=== PATIENT | male | born 1980 | race Caucasian/White ===

== ENCOUNTER → 2018-11-23 07:37 | Outpatient (CLI) | payer BC, SELFPAY ==
[2018-11-23 12:23] LABS: Alanine Aminotransferase 64 U/L (12-78); Albumin Level 3.9 gm/dL (3.4-5.0); Albumin/Globulin Ratio 1.4 (1.1-1.8); Alkaline Phosphatase 113 U/L (46-116); Anion Gap 13.1 mEq/L (5-15); Aspartate Amino Transferase 24 U/L (15-37); Bilirubin,Total 0.4 mg/dL (0.2-1.0); Blood Urea Nitrogen 17 mg/dL (7-18); Calcium 8.9 mg/dL (8.5-10.1); Carbon Dioxide 31 mmol/L (21.0-32.0); Chloride 106 mmol/L (98-107); Chol/HDL Ratio 3.3 (1-3.5); Cholesterol 124 mg/dL (140-200); Creatinine,Serum 0.89 mg/dL (0.70-1.30); Estimated Glomerular Filt Rate 96 ml/min (>60); GFR (African American) 116 ML/MIN (>60); Globulin 2.8 gm/dl (1.3-3.2); Glucose 101 mg/dL (74-106); HDL Cholesterol 38 mg/dL (27-67); LDL Cholesterol 69 mg/dL (0-130); Potassium 4.1 mmoL/L (3.5-5.1); Sodium 146 mmol/L (136-145); Total Protein,Serum 6.7 gm/dL (6.4-8.2); Triglycerides 86 mg/dL (30-200); VLDL Cholesterol 17 mg/dL (0-40)
== END ==
PROVIDERS: Visit Provider Nurse Practitioner Family
DX: Z00.00 Encounter for general adult medical examination without abnormal findings (principal)
CPT/HCPCS: 36415; 80053; 80061

== ENCOUNTER 2019-11-25 13:15 | Emergency (ER) | payer BC, SELFPAY ==
--- NOTE | 2019-11-25 13:13 | ECG_ITS ---
APPROVED REPORT Exam: Resting ECG HR:81 bpm ECG Measurements Heart Rate 81 AXES LA 134 P 28 QRSd 78 QRS -14 QT 368 T 16 QTc 427 <Conclusion> Normal sinus rhythm Normal ECG Electronically signed by : Naga Mosley, 11/26/2019 13:16:29
[2019-11-25 13:15] VITALS: BP 130/98; PULSE 97; RESP 18; TEMP 36.7; O2SAT 97; BMI 41.5
--- NOTE | 2019-11-25 13:19 | XR_ITS ---
PROCEDURE: XR CHEST 2V CLINICAL HISTORY: cp Chest pain COMPARISON: CXR CHEST(2 VIEWS-NOT PORTABLE) from 09/14/2016 FINDINGS: The cardiomediastinal silhouette and pulmonary vascularity are within normal limits. The lungs are clear without infiltrates, suspicious nodules, or pleural effusions. No acute bony abnormalities. IMPRESSION: No acute findings. Dictated by: Marlo Salazar MD 11/25/2019 13:41 Electronically signed by Marlo Salazar MD in [place] 11/25/2019 13:41
[2019-11-25 13:28] LABS: Basophils # 0.1 K/mm3 (0-0.2); Basophils % 0.6 % (0.1-2.0); Eosinophils # 0.2 K/mm3 (0.0-0.4); Eosinophils % 2.2 % (0.1-12.0); Hematocrit 47.7 % (42.0-52.0); Hemoglobin 17.3 g/dL (14.1-18.0); Lymphocytes # 2.8 K/mm3 (0.7-4.5); Lymphocytes % 29.9 % (10-50); Mean Corpuscular HGB Conc 36.3 g/dL (31.8-35.4); Mean Corpuscular Hemoglobin 32.2 pg (27.0-31.2); Mean Corpuscular Volume 88.5 fl (80-94); Mean Platelet Volume 7.8 fl (7.4-10.4); Monocytes # 0.6 K/mm3 (0.1-1.0); Monocytes % 6.3 % (1.7-9.3); Neutrophils # 5.7 K/mm3 (1.8-7.8); Neutrophils % 60.9 % (37.0-80.0); Platelet Count 292 K/mm3 (142-424); Red Blood Count 5.39 M/mm3 (4.60-6.20); Red Cell Distribution Width 13.7 % (11.5-17.5); White Blood Count 9.4 K/mm3 (4.8-10.8)
[2019-11-25 13:32] LABS: Alanine Aminotransferase 61 U/L (12-78); Albumin Level 5.2 g/dl (3.5-5.0); Albumin/Globulin Ratio 1.6 (1.1-1.8); Alkaline Phosphatase 108 U/L (38-126); Anion Gap 16.1 mEq/L (5-15); Aspartate Amino Transferase 36 U/L (17-59); Bilirubin,Total 0.7 mg/dl (0.2-1.3); Blood Urea Nitrogen 21 mg/dl (9-20); Calcium 9.7 mg/dl (8.4-10.2); Carbon Dioxide 29 mmol/L (22.0-30.0); Chloride 99 mmol/L (98-107); Creatinine Clearance Estimated 92 mL/min (50-200); Estimated Glomerular Filt Rate 108 ml/min (>60); GFR (African American) 130 ML/MIN (>60); Globulin 3.2 g/dL (1.3-3.2); Glucose 117 mg/dl (74-100); Potassium 4.1 mmoL/L (3.5-5.1); Sodium 140 mmol/L (136-145); Total Protein,Serum 8.4 g/dl (6.3-8.2)
--- NOTE | 2019-11-25 13:32 | [facility].EDCP ---
ED Disposition Clinical Impression: Chest pain Qualifiers: Chest pain type: unspecified Qualified Code(s): R07.9 - Chest pain, unspecified Disposition: Home, Self-Care Condition on Discharge: Good Additional Instructions: After reviewing your labs and radiology we are discharging you home at this time. I recommend that you follow-up with your primary care physician within this next week, and schedule appointments with a linux engineer in the future. Should your symptoms return or worsen, please return to the emergency department for further evaluation. Referrals: Provider,Referral, [Referring] - - Critical Care Critical Care Time: No Attestation: On 11/25/19, the high probability of a clinically significant, sudden or life threatening deterioration of the following system(s) required my full and direct attention, intervention and personal management. The time I documented below is in addition to time spent performing reported procedures but includes the following listed in this critical care notation. Medical Decision Making - Tru Inquiry Pt receiving controlled substance: No Tru was queried for this patient: No Vital Signs: 11/25/19 13:15 11/25/19 15:49 11/25/19 16:36 Temperature 98.1 F Temperature Source Oral Pulse Rate [Right] 97 H 69 72 Respiratory Rate 18 Blood Pressure [Right Arm] 130/98 H 122/80 114/72 Blood Pressure Mean [Right Arm] 108 94 86 Blood Pressure Source [Right Arm] Automatic Cuff Automatic Cuff Blood Pressure Position [Right Arm] Sitting Supine 02 Sat by Pulse Oximetry 97 97 97 Oxygen Delivery Method Room Air - Lab Data Lab Results 11/25/19 13:18: WBC 9.4, RBC 5.39, Hgb 17.3, Hct 47.7, MCV 88.5, MCH 32.2 H, MCHC 36.3 H, RDW 13.7, Plt Count 292, MPV 7.8, Neut % (Auto) 60.9, Lymph % (Auto) 29.9, [place] % (Auto) 6.3, Eos % (Auto) 2.2, Baso % (Auto) 0.6, Neut # (Auto) 5.7, Lymph # (Auto) 2.8, [place] # (Auto) 0.6, Eos # (Auto) 0.2, Baso # (Auto) 0.1 11/25/19 13:18: Sodium 140, Potassium 4.1, Chloride 99, Carbon Dioxide 29, Anion Gap 16.1 H, BUN 21 H, Creatinine 0.80, Estimated Creat Clear 92, Estimated GFR 108, Est GFR ( Amer) 130, Glucose 117 H, Calcium 9.7, Total Bilirubin 0.7, AST 36, ALT 61, Alkaline Phosphatase 108, Troponin I < 0.01, Total Protein 8.4 H, Albumin 5.2 H, Globulin 3.2, Albumin/Globulin Ratio 1.6 11/25/19 13:18: D-Dimer < 100 11/25/19 16:31: Troponin I < 0.01 Result diagrams: 11/25/19 13:18 11/25/19 13:18 Orders (Tests/Meds): ED MEDICATIONS Discontinued Medications Generic Name Dose Route Start Last Admin Trade Name Jayna PRN Reason Stop Dose Admin Aspirin 324 mg 11/25/19 13:20 11/25/19 13:28 Aspirin 81mg Chewable Tablet PO 11/25/19 13:21 Not Given ONCE ONE Aspirin 325 mg 11/25/19 13:25 11/25/19 13:30 Aspirin 325mg Tablet PO 11/25/19 13:26 325 mg ONCE ONE Administration Belladonna Alkaloids 60 ml 11/25/19 13:25 11/25/19 13:30 Gi Cocktail 60ml Udc PO 11/25/19 13:26 60 ml ONCE ONE Administration Nitroglycerin 0.4 mg 11/25/19 13:25 11/25/19 13:30 Nitrostat 0.4mg Sl Tablet SL 11/25/19 13:26 1 dose ONCE ONE Administration ORDERS Category Date Time Status Troponin I Q3H Lab 11/25/19 19:30 Ordered Medical Decision Narrative: In summary patient is a well-appearing 39-year-old male presenting to the emergency department for evaluation of 3 days of chest pain. Differential diagnosis includes but is not limited to GERD, pneumonia, pulmonary embolism, and ACS. This appropriate work-up initiated including CBC, CMP, d-dimer, troponin panel, chest x-ray two-view, and EKG. Patient's initial EKG shows normal sinus rhythm, no ST elevation, depression, or QT prolongation was noted. Initial troponin shows no elevation. Rest of initial labs nonactionable. Chest x-ray shows no cardiopulmonary disease. Repeat troponin shows no delta. Repeate EKG shows normal sinus rhythm, no ST elevation, d
[2019-11-25 13:45] LABS: Troponin I < 0.01 ng/ml (0.00-0.034)
[2019-11-25 14:30] LABS: D-Dimer < 100 ng/mL (0-400)
[2019-11-25 15:49] VITALS: BP 122/80; PULSE 69; O2SAT 97
--- NOTE | 2019-11-25 16:16 | PC.NURSE ---
SPOKE WITH LAB TO INQUIRE ON SECOND TROP TIME. THEY ADVISED THAT IT IS DUE AT 1530. MEDIC STATES THAT HE WILL DRAW IT AT THAT TIME.
[2019-11-25 16:36] VITALS: BP 114/72; PULSE 72; O2SAT 97
[2019-11-25 16:59] LABS: Troponin I < 0.01 ng/ml (0.00-0.034)
[2019-11-25 17:16] VITALS: BP 155/69; PULSE 80; RESP 18; TEMP 36.7; O2SAT 98
== END 2019-11-25 17:30 | disposition home or self-care (01) ==
PROVIDERS: Emergency Provider Emergency Medicine; PCP Internal Medicine Adolescent Medicine
DX: R07.9 Chest pain, unspecified (principal)
CPT/HCPCS: 71046; 80053; 84484; 85025; 85378; 93005; 99284

== ENCOUNTER → 2020-06-16 08:31 | Outpatient (CLI) | payer BC, SELFPAY ==
[2020-06-16 09:35] LABS: Chloride 102 mmol/L (98-107); Sodium 140 mmol/L (136-145)
[2020-06-16 09:37] LABS: Blood Urea Nitrogen 17 mg/dl (9-20); Estimated Glomerular Filt Rate 93 ml/min (>60); GFR (African American) 113 ML/MIN (>60)
[2020-06-16 09:38] LABS: Alanine Aminotransferase 57 U/L (12-78); Albumin Level 5.1 g/dl (3.5-5.0); Albumin/Globulin Ratio 1.6 (1.1-1.8); Alkaline Phosphatase 103 U/L (38-126); Aspartate Amino Transferase 40 U/L (17-59); Bilirubin,Total 0.7 mg/dl (0.2-1.3); Carbon Dioxide 32 mmol/L (22.0-30.0); Cholesterol 163 mg/dl (140-200); Globulin 3.1 g/dL (1.3-3.2); Total Protein,Serum 8.2 g/dl (6.3-8.2); Triglycerides 116 mg/dl (30-150); VLDL Cholesterol 23 mg/dL (0-40)
[2020-06-16 09:39] LABS: Calcium 10.3 mg/dl (8.4-10.2); Chol/HDL Ratio 3.3 (1-3.5); Glucose 107 mg/dl (74-100); HDL Cholesterol 50 mg/dl (40-60)
[2020-06-16 09:49] LABS: Direct LDL Cholesterol 91.32 mg/dL (100-129)
[2020-06-16 13:04] LABS: Hemoglobin A1C 5.2 % (4.0-6.0)
== END ==
PROVIDERS: Visit Provider Nurse Practitioner Family
DX: Z00.00 Encounter for general adult medical examination without abnormal findings (principal); E11.9 Type 2 diabetes mellitus without complications
CPT/HCPCS: 36415; 80053; 80061; 83036

== ENCOUNTER → 2020-10-07 10:05 | Outpatient (CLI) | payer BC, SELFPAY ==
[2020-10-07 10:26] LABS: Basophils # 0.1 K/mm3 (0-0.2); Basophils % 0.5 % (0.1-2.0); Eosinophils # 0.1 K/mm3 (0.0-0.4); Eosinophils % 0.7 % (0.1-12.0); Hematocrit 46.3 % (42.0-52.0); Hemoglobin 16.8 g/dL (14.1-18.0); Lymphocytes # 2.2 K/mm3 (0.7-4.5); Lymphocytes % 13.8 % (10-50); Mean Corpuscular HGB Conc 36.3 g/dL (31.8-35.4); Mean Corpuscular Volume 85.5 fl (80-94); Mean Platelet Volume 8.1 fl (7.4-10.4); Monocytes # 0.9 K/mm3 (0.1-1.0); Monocytes % 5.9 % (1.7-9.3); Neutrophils # 12.4 K/mm3 (1.8-7.8); Neutrophils % 79.1 % (37.0-80.0); Platelet Count 352 K/mm3 (142-424); Red Blood Count 5.42 M/mm3 (4.60-6.20); Red Cell Distribution Width 13.6 % (11.5-17.5); White Blood Count 15.7 K/mm3 (4.8-10.8)
[2020-10-07 10:30] LABS: MANUAL DIFFERENTIAL MANUAL DIFFERENTIAL (MANUAL DIFF)
[2020-10-07 10:34] LABS: Alanine Aminotransferase 37 U/L (12-78); Albumin/Globulin Ratio 1.6 (1.1-1.8); Alkaline Phosphatase 109 U/L (38-126); Amylase 62 U/L (30-110); Anion Gap 11.8 mEq/L (5-15); Aspartate Amino Transferase 28 U/L (17-59); Bilirubin,Total 1.2 mg/dl (0.2-1.3); Blood Urea Nitrogen 21 mg/dl (9-20); Calcium 9.6 mg/dl (8.4-10.2); Carbon Dioxide 28 mmol/L (22.0-30.0); Chloride 103 mmol/L (98-107); Estimated Glomerular Filt Rate 107 ml/min (>60); GFR (African American) 130 ML/MIN (>60); Globulin 3.2 g/dL (1.3-3.2); Glucose 102 mg/dl (74-100); Lipase 40 U/L (23-300); Potassium 3.8 mmoL/L (3.5-5.1); Sodium 139 mmol/L (136-145); Total Protein,Serum 8.2 g/dl (6.3-8.2)
[2020-10-07 10:50] LABS: Lymphocytes % 17 % (10-50); Monocytes % 3 % (2-9); Neutrophils % 80 % (42-76); Platelet Estimate Normal; RBC Morphology Normal; Total Cells Counted 100
--- NOTE | 2020-10-07 12:24 | CT_ITS ---
PROCEDURE: CT ABDOMEN PELVIS WO/W CON CLINICAL INDICATION: RT LQ ABD PAIN,FEVER COMPARISON: CT ABDPELW/O CT ABD PELVIS W/O CONTRAST from 12/11/2014 TECHNIQUE: IV Contrast: 75ML Isovue 370 Oral Contrast None Axial images obtained with sagittal and coronal reformats. All CT scans at the facility use one or more dose reduction, viz: automated exposure control, ma/kV adjustment per patient size (including targeted exams where dose is matched to indication, i.e. head), or iterative reconstruction technique. FINDINGS: LOWER THORAX: Minimal atelectatic or fibrotic change in the right middle lobe ABDOMEN & PELVIS: Fatty liver. No focal liver lesion. Mild splenomegaly at 14 cm. The pancreas and kidneys have an unremarkable appearance. No renal or ureteral calculi. No intestinal obstruction or free air. The appendix has an unremarkable appearance There is diverticulosis of the descending and sigmoid colon. There is focal thickening of the sigmoid colon in the central aspect of the pelvis with stranding of the pericolic fat consistent with diverticulitis. Along the left side of the apex of the sigmoid colon there is a small area soft tissue density measuring 15 mm and could be due to a thickened diverticulum or a small area of extra colic fluid/phlegmonous change. There is mild diffuse thickening of the sigmoid colon distal to this area of focal thickening which may represent associated colitis. No extra colic gas is evident. No evidence of a formed abscess. No acute bony anomalies. IMPRESSION: 1. There is colonic diverticulosis with mild diffuse thickening of the sigmoid colon with a more focal area of thickening in the mid aspect of the sigmoid colon with stranding of the pericolic fat consistent with diverticulitis and possible colitis of the rectosigmoid region. Small left pericolic area of fluid density versus thickened inflamed diverticulum. No formed abscess is evident. No extra colic gas. One cannot exclude the possibility of neoplasm of the sigmoid colon. Suggest convalescent follow-up/convalescent colonoscopy. 2. Mild splenomegaly Dictated by: Marlo Salazar MD 10/07/2020 13:09 Marlo Salazar MD in [place] 10/07/2020 13:09
== END ==
PROVIDERS: Visit Provider Internal Medicine Adolescent Medicine
DX: R10.31 Right lower quadrant pain (principal)
CPT/HCPCS: 36415; 74178; 80053; 82150; 83605; 83690; 85007; 85025; Q9967

== ENCOUNTER → 2021-07-19 11:44 | Outpatient (CLI) | payer BC, SELFPAY ==
[2021-07-20 06:42] LABS: Covid-19 Nasal PCR Sendout Lex POSITIVE
== END ==
PROVIDERS: Visit Provider Nurse Practitioner
DX: U07.1 COVID-19 (principal)
CPT/HCPCS: C9803; U0004; U0005

== ENCOUNTER 2024-03-04 14:29 | Outpatient (CLI) | payer BC, SELFPAY ==
[2024-03-04 19:10] LABS: Alanine Aminotransferase 41 U/L (12-78); Albumin Level 4.3 g/dl (3.5-5.0); Albumin/Globulin Ratio 1.5 (1.1-1.8); Alkaline Phosphatase 84 U/L (38-126); Anion Gap 7.9 mEq/L (5-15); Aspartate Amino Transferase 35 U/L (17-59); Bilirubin,Total 0.6 mg/dl (0.2-1.3); Blood Urea Nitrogen 23 mg/dl (9-20); Calcium 9.5 mg/dl (8.4-10.2); Carbon Dioxide 31 mmol/L (22.0-30.0); Chloride 104 mmol/L (98-107); Estimated Glomerular Filt Rate 73 ml/min (>60); GFR (African American) 88 ML/MIN (>60); Globulin 2.9 g/dL (1.3-3.2); Glucose 85 mg/dl (74-100); Potassium 3.9 mmoL/L (3.5-5.1); Sodium 139 mmol/L (136-145); Total Protein,Serum 7.2 g/dl (6.3-8.2)
[2024-03-04 19:25] LABS: T4 (Thyroxine) 9.9 ug/dl (5.53-11.0)
[2024-03-04 19:38] LABS: Thyroid Stimulating Hormone 0.95 uIU/mL (0.465-4.68)
== END 2024-03-04 23:59 | disposition home or self-care (01) ==
LOC: LAB.DROPOF 03-05 10:30
PROVIDERS: PCP Nurse Practitioner Acute Care; Visit Provider Nurse Practitioner Acute Care
DX: F41.9 Anxiety disorder, unspecified (principal)
CPT/HCPCS: 80053; 84436; 84443

== ENCOUNTER 2024-09-06 19:06 | Inpatient (IN) | payer BC, SELFPAY ==
[2024-09-06 19:10] VITALS: BP 137/97; PULSE 139; RESP 18; TEMP 37.1; O2SAT 100; BMI 30.7
--- NOTE | 2024-09-06 19:16 | ED_ITS ---
<Statement entered by Elizabeth Pagan DO - 09/06/24 23:09> I was consulted by the LAM, and we discussed the complexity of the problems being addressed. I approved the treatment and management plan for this patient's care in the emergency department, thus performing a substantive portion of the medical decision making. Elizabeth Pagan DO Discharge Plan Disposition Patient Disposition: Admitted Condition: Serious Prescriptions Prescriptions: No Action dextroamphetamine-amphetamine [Adderall] 20 mg tablet 20 mg PO BID Qty: 60 0RF Rx Instructions: administer doses at least 4-6 hours apart [id number] [Bromfed DM] 2-30-10 mg/5 mL syrup 5 ml PO Q4-6H PRN (Reason: cold symptoms) Qty: 118 0RF methylprednisolone 4 mg tablets,dose pack See Rx Instructions PO PER PKG DIR Qty: 21 0RF Rx Instructions: PO PER PKG DIR Referrals Follow up/Referrals: Brandyn Colón MD [Primary Care Provider] - See instructions Clinical Impressions Clinical Impression: Sepsis without septic shock, Acute diverticulitis Instructions Patient Instructions: DI for Acute Abdominal Pain Print Language Print Language: Monegasque Discharge ED Provider: Elizabeth Pagan General Adult HPI General Chief complaint: Abdominal Pain Stated complaint: abd pain Time Seen by Provider: 09/06/24 19:16 Mode of Arrival: Wheelchair Source of Information: Patient and Spouse Description of Symptoms (Recalled from ER Triage Doc. by RN): pt presents for evaluation lower abd pain that started yesterday that has progressively become worse. Pt states he has not been able to have a bowel movement, but could only pass liquid. Pt tried stool softeners yesterday. Pt has had nausea. hx of diverticulitis 11 years ago History of Present Illness HPI narrative: Patient presents for evaluation of acute abdominal pain. Patient states that he has been having acute abdominal pain that began yesterday while he was sleeping and is continued to progress. Patient does have a known history of diverticulitis in the past approximately 11 years ago but never required surgery. He reports that he has not had a bowel movement since Monday is passing flatus is able to drink water but has very little appetite and feels nauseated. He states the pain is located in his lower abdomen does not radiate. It is intense and unrelenting. He denies any chest pain shortness of breath hemoptysis hematochezia melena hematemesis hematuria. Related Data Previous Rx's ?Medication ?Instructions ?Recorded [id number]-lpqthfuklpipksd-HS 5 ml PO Q4-6H PRN cold symptoms 08/15/24 2 mg-30 mg-10 mg/5 mL oral syrup #118 mL (Bromfed DM) methylprednisolone 4 mg tablets in See Rx Instructions PO PER PKG DIR 08/15/24 a dose pack #21 tabs dextroamphetamine-amphetamine 20 20 mg PO BID #60 tabs 08/26/24 mg tablet (Adderall) Allergies Allergy/AdvReac Type Severity Reaction Status Date / Time No Known Allergies Allergy Verified 08/15/24 08:44 [facility] Disclaimer: The information contained in this section may have been updated after the patient was seen, as this information can be updated by other users. Medical History Generalized anxiety disorder Adult ADHD (attention deficit hyperactivity disorder) Insomnia Surgical History No pertinent past surgical history Family History Family/Other No significant family history Social History Smoking Status: Never smoker alcohol intake: never current occupational status: employed Travel in the last 8 weeks: None household members: family housing: house Have you lived/traveled outside [place] in past 30 days?: No Contact w/someone who lives/traveled outside US past 30 days?: No Exposure to someone with infectious disease in past 14 days?: No Do you have a fever (greater than 100.4 F or 38 C)?: No Have you tested positive for COVID-19: No Exposed to someone with COVID-19 in past 14 days?: No Do you have a sore throat?: No Do you have a cough?: No Do you have any weakness?: No Do you have any diarrhea?: No Are you experiencing any unusual bleeding?: No Do you have any muscle aches/pain?: No Do you have any abdominal pain?: Yes Are you experiencing loss of taste or smell?: No Other Medical History Have you received the Flu Vaccine for this season: No Have you received the Pneumonia Vaccine: No ROS Obtained: Yes Systems reviewed as appropriate & no additional complaints except as documented Physical Exam General General appearance: alert and in distress (Abdominal pain) Respiratory Respiratory exam: Present normal lung sounds bilaterally Cardiovascular Cardiovascular exam: Present tachycardia Neurological Exam Neurological exam: Present alert and oriented X3 Medical Decision Making Medical Records Medical records reviewed: Yes I reviewed the patient's medical records. Screening: Per USPSTF and CDC recommendations, given the prevalence of disease in our region, it is our hospital?s policy to screen for HIV and viral Hepatitis for all patients aged 18 and over and those with ongoing risk factors. Tru Inquiry Pt receiving controlled substance: No Vital Signs: 09/06/24 19:10 Temperature 98.8 F Temperature Source Oral Pulse Rate [Right] 139 H Respiratory Rate 18 Blood Pressure [Right Arm] 137/97 H Blood Pressure Mean [Right Arm] 110 Blood Pressure Position [Right Arm] Sitting 02 Sat by Pulse Oximetry 100 Lab Data Lab results reviewed: Yes I reviewed the patient's lab results. Lab Results 09/06/24 19:22: WBC 22.3 H*, RBC 5.67, Hgb 17.5, Hct 48.2, MCV 85.0, MCH 30.9, M CHC 36.3 H, RDW 12.2, Plt Count 397, MPV 9.5, Neut % (Auto) 88.3 H, Lymph % (Auto) 4.7 L, [place] % (Auto) 6.0, Eos % (Auto) 0.4, Baso % (Auto) 0.2, Neut # (Auto) 19.7 H, Lymph # (Auto) 1.0, [place] # (Auto) 1.3 H, Eos # (Auto) 0.1, Baso # (Auto) 0.0, Total Counted 100, Neutrophils % (Manual) 91 H, Lymphocytes % (Manual) 4 L, Monocytes % (Manual) 5, Platelet Estimate Normal, RBC Morphology Normal, Sodium 135 L, Potassium 3.8, Chloride 101, Carbon Dioxide 24, Anion Gap 13.8, BUN 21 H, Creatinine 0.80, Estimated Creat Clear 166, Estimated GFR 105, Est GFR ( Amer) 127, Glucose 118 H, Lactate 1.3, Calcium 9.3, Total Bilirubin 1.7 H, AST 23, ALT 31, Alkaline Phosphatase 77, Total Protein 7.9, Albumin 4.9, Globulin 3.0, Albumin/Globulin Ratio 1.6, Procalcitonin 0.161, HCV Ab ARPAN w/Rflx PCR Qn Negative, HIV Ag/Ab Combo Qual Negative 09/06/24 19:53: Urine Color Yellow, Urine Appearance Clear, Urine pH 6.0, Ur Specific [place] >= 1.030, Urine Protein Trace, Urine Glucose (UA) Negative, Urine Ketones 40, Urine Blood Negative, Urine Nitrate Negative, Urine Bilirubin 1+ A, Urine Urobilinogen 0.2, Ur Leukocyte Esterase Negative, Urine RBC 20-50, Urine WBC 3-5, Ur Squamous Epith Cells 3-5, Urine Bacteria 2+, Urine Mucus 2+ 09/06/24 19:22 09/06/24 19:22 Orders (Tests/Meds): ED MEDICATIONS Generic Name Dose Route Start Last Admin Trade Name Freq PRN Reason Stop Dose Admin Hydromorphone HCl 1 mg 09/06/24 21:17 09/06/24 21:21 Hydromorphone 2mg/Ml Syringe IV 09/06/24 21:18 1 mg ONCE ONE Administration Discontinued Medications Generic Name Dose Route Start Last Admin Trade Name Freq PRN Reason Stop Dose Admin Acetaminophen 1,000 mg 09/06/24 19:20 09/06/24 19:28 Acetaminophen 1,000mg/100ml Vial IV 09/06/24 19:21 1,000 mg ONCE ONE Administration Hydromorphone HCl 1 mg 09/06/24 19:20 09/06/24 19:28 Hydromorphone 2mg/Ml Syringe IV 09/06/24 19:21 1 mg ONCE ONE Administration Lactated Ringer's 2,260 mls @ 1,130 mls/hr 09/06/24 19:20 09/06/24 19:28 Lactated Ringer's 1000 Ml Bag 30 ml/kg infuse over 2 hr (2260 ml) 09/06/24 21:19 1,130 mls/hr IV Administration .Q2H ONE Piperacillin Sod/Tazobactam 50 mls @ 100 mls/hr 09/06/24 19:26 09/06/24 19:41 Sod 3.375 gm/ Sodium Chloride IV 09/06/24 19:55 100 mls/hr ONCE ONE Administration Iopamidol 75 ml 09/06/24 19:28 09/06/24 19:30 Iopamidol-370 (76%);100ml Bottle IV 09/06/24 19:29 75 ml ONCE ONE Administration Ondansetron HCl 4 mg 09/06/24 19:47 09/06/24 19:48 Ondansetron 4mg/2ml Vial IV 09/06/24 19:48 4 mg ONCE ONE Administration Sodium Chloride 10 ml 09/06/24 19:28 09/06/24 19:30 Sodium Chloride 0.9% 10ml Syr (Rad Only) IV 09/06/24 19:29 10 ml ONCE ONE Administration ORDERS Category Date Time Status CT abdomen pelvis w con Stat Cat Scan 09/06/24 19:20 Completed CBC w/Auto Diff [Complete Blood Count Auto Diff] Stat Lab 09/06/24 19:22 Completed CMP [Comprehensive Metabolic Panel] Stat Lab 09/06/24 19:22 Completed HIV Combo Stat Lab 09/06/24 19:22 Completed Hepatitis C Ab Qual. W/ RFX Stat Lab 09/06/24 19:22 Completed Lactic Acid Stat Lab 09/06/24 19:22 Completed Procalcitonin Stat Lab 09/06/24 19:22 Completed UA [Urinalysis and Microscopic] Stat Lab 09/06/24 19:53 Completed Blood Culture Stat Micro 09/06/24 19:25 Received Urine Culture Stat Micro 09/06/24 19:53 Received Tissue Perfus/Sepsis Re-Eval Sepsis Re-Evaluation Performed: Yes Date Performed: 09/06/24 Time Performed: 20:15 Medical Decision Narrative: In summary patient is a 44-year-old male who presents to the emergency department for evaluation of acute abdominal pain. Patient is initially normotensive at 137/97 significantly tachycardic at 139 with sinus tachycardia on the bedside monitor breathing 18 times a minute satting at 100% on room air upon arrival, afebrile at 98.8. Physical exam is remarkable for a well- nourished well-developed but unwell appearing 44-year-old gentleman who appears to be in significant amount abdominal pain. Physical exam is significant for clear breath sounds no epigastric tenderness however patient has exquisite tenderness in the lower abdominal quadrants is slightly rigid in the left lower quadrant he has rebound tenderness and is guarding and bowel sounds are quiescent. Differential diagnosis includes acute diverticulitis versus acute appendicitis versus perforation of a hollow viscus etc. Initial workup will be conducted with hematologic labs CT scan abdomen pelvis urinalysis blood cultures. Initial interventions include sepsis bolus and Zosyn after cultures given as well as Dilaudid. Patient to be held n.p.o. to work or complete initial workup reviewed by me and patient has a white count of 23.3 with an absolute neutrophil count of 19.7 the remainder of his hematologic labs are nonactionable patient has a procalcitonin of 0.161 and my informal interpretation of his CT scan abdomen pelvis shows significant left lower quadrant fat stranding around the sigmoid colon with small amount of localized free air indicating a probable contained perforation. Given this I contacted the general surgeon on-call who is on her way in to evaluate the patient at 2000 hrs.. Upon repeat evaluation patient's pain is better controlled his heart rate is come down to 115. Patient arrived in the emergency department at 2125 and it is examined the patient. For now she wants to hold the patient n.p.o. Zosyn IV 3.375 every 6 hours serial abdominal exams. Given that I had indirect discussion with hospital medicine regarding patient FUENTES and management and he will be admitted for further evaluation and care. Critical Care Critical Care Time Critical Care Time: Yes Attestation: On 09/06/24, the high probability of a clinically significant, sudden or life threatening deterioration of the following system(s) required my full and direct attention, intervention and personal management. The time I documented below is in addition to time spent performing reported procedures but includes the following listed in this critical care notation. Total Time Total Critical Care Time: 35
--- NOTE | 2024-09-06 19:20 | CT_ITS ---
PROCEDURE INFORMATION: Exam: CT Abdomen And Pelvis With Contrast Exam date and time: 09/06/2024 7:27 PM Age: 44 years old Clinical indication: Abdominal pain; Additional info: Acute abdominal pain TECHNIQUE: Imaging protocol: Computed tomography of the abdomen and pelvis with contrast. Radiation optimization: All CT scans at this facility use at least one of these dose optimization techniques: automated exposure control; mA and/or kV adjustment per patient size (includes targeted exams where dose is matched to clinical indication); or iterative reconstruction. Contrast material: ISOVUE; Contrast volume: 75 ml; Contrast route: IV; COMPARISON: CT ABDOMEN PELVIS WO/W CON 10/07/2020 12:43 PM FINDINGS: Liver: Normal. No mass. Gallbladder and biliary ducts: Normal. No calcified stones. No ductal dilation. Pancreas: Normal. No ductal dilation. Spleen: Normal. No splenomegaly. Adrenal glands: Normal. No mass. Kidneys and ureters: Normal. No hydronephrosis. Stomach and bowel: There is wall thickening over a moderate length segment of the distal sigmoid colon with significant surrounding inflammation. Moderate diverticulosis noted throughout the distal colon. The appearance is most suggestive of acute diverticulitis. No evidence of diverticular perforation or abscess. No evidence of bowel obstruction. Small bowel loops appear unremarkable. Appendix: The appendix is visualized and appears normal. Intraperitoneal space: Unremarkable. No free air. No significant fluid collection. Vasculature: Unremarkable. No abdominal aortic aneurysm. Lymph nodes: Unremarkable. No enlarged lymph nodes. Urinary bladder: Unremarkable as visualized. Reproductive: Unremarkable as visualized. Bones/joints: Mild multilevel degenerative changes throughout the lower spine. No vertebral body compression. No acute fracture. Soft tissues: Unremarkable. IMPRESSION: Significant findings of uncomplicated sigmoid diverticulitis
[2024-09-06] MEDS: HYDROMORPHONE 2MG/ML SYRINGE 1 MG IV ×2 (19:28→21:21)
[2024-09-06] MEDS: ACETAMINOPHEN 1,000MG/100ML VIAL 1000 MG IV (19:28)
[2024-09-06] MEDS: LACTATED RINGERS 1000ML 2,260 ML 1130 ML IV (19:28)
[2024-09-06] MEDS: SODIUM CHLORIDE 0.9% 10ML SYR (RAD ONLY) 10 ML IV (19:30)
[2024-09-06] MEDS: IOPAMIDOL-370 (76%);100ML BOTTLE 75 ML IV (19:30)
[2024-09-06 19:33] LABS: Basophils % 0.2 % (0.1-2.0); Eosinophils # 0.1 K/mm3 (0.0-0.4); Eosinophils % 0.4 % (0.1-12.0); Hematocrit 48.2 % (42.0-52.0); Hemoglobin 17.5 g/dL (14.1-18.0); Lymphocytes % 4.7 % (10-50); Mean Corpuscular HGB Conc 36.3 g/dL (31.8-35.4); Mean Corpuscular Hemoglobin 30.9 pg (27.0-31.2); Mean Platelet Volume 9.5 fl (7.4-10.4); Monocytes # 1.3 K/mm3 (0.1-1.0); Neutrophils # 19.7 K/mm3 (1.8-7.8); Neutrophils % 88.3 % (37.0-80.0); Platelet Count 397 K/mm3 (142-424); Red Blood Count 5.67 M/mm3 (4.60-6.20); Red Cell Distribution Width 12.2 % (11.5-17.5); White Blood Count 22.3 K/mm3 (4.8-10.8)
[2024-09-06 19:36] LABS: MANUAL DIFFERENTIAL MANUAL DIFFERENTIAL (MANUAL DIFF)
[2024-09-06] MEDS: PIPERCILLIN/TAZO 3.375 GM in 0.9 % SODIUM CHLORIDE 50 ML IV (19:41)
[2024-09-06 19:43] LABS: Lactic Acid 1.3 mmol/L (0.7-2.1)
[2024-09-06 19:44] LABS: Alanine Aminotransferase 31 U/L (12-78); Albumin Level 4.9 g/dl (3.5-5.0); Albumin/Globulin Ratio 1.6 (1.1-1.8); Alkaline Phosphatase 77 U/L (38-126); Aspartate Amino Transferase 23 U/L (17-59); Bilirubin,Total 1.7 mg/dl (0.2-1.3); Blood Urea Nitrogen 21 mg/dl (9-20); Calcium 9.3 mg/dl (8.4-10.2); Carbon Dioxide 24 mmol/L (22.0-30.0); Chloride 101 mmol/L (98-107); Creatinine Clearance Estimated 166 mL/min (50-200); Estimated Glomerular Filt Rate 105 ml/min (>60); GFR (African American) 127 ML/MIN (>60); Glucose 118 mg/dl (74-100); Sodium 135 mmol/L (136-145); Total Protein,Serum 7.9 g/dl (6.3-8.2)
[2024-09-06] MEDS: ONDANSETRON 4MG/2ML VIAL 4 MG IV (19:48)
[2024-09-06 19:58] LABS: Microscopic, Urine URINE MICROSCOPIC (MICROSCOPIC)
[2024-09-06 20:00] LABS: Appearance,Urine CLEAR (Clear); Blood, Urine Negative (Negative); Color,Urine YELLOW (Yellow); Glucose,Urine (UA) Negative (Negative); Ketones,Urine 40 (Negative); Leukocyte Esterase,Urine Negative (Negative); Nitrate,Urine Negative (Negative); Protein,Urine TRACE (Negative); Specific Gravity, Urine >= 1.030 (1.005-1.030); Urobilinogen,Urine 0.2 EU/dl (0.2)
[2024-09-06 20:01] LABS: Procalcitonin 0.161 ng/mL (0.0-2.0)
[2024-09-06 20:09] LABS: Bilirubin,Urine 1+ (Negative)
[2024-09-06 20:16] LABS: Anion Gap 13.8 mEq/L (5-15); Potassium 3.8 mmoL/L (3.5-5.1)
[2024-09-06 20:21] LABS: Lymphocytes % 4 % (10-50); Monocytes % 5 % (2-9); Neutrophils % 91 % (42-76); Total Cells Counted 100
[2024-09-06 20:22] LABS: Platelet Estimate Normal; RBC Morphology Normal
[2024-09-06 20:24] LABS: Bacteria,Urine 2+ /lpf; Mucus,Urine 2+ /lpf; RBC,Urine 20-50 #/hpf (0-3)
[2024-09-06 20:47] LABS: HIV Combo NEGATIVE (Negative)
[2024-09-06 20:54] LABS: Hepatitis C Ab Qual. W/ RFX NEGATIVE (Negative)
[2024-09-06 21:29] VITALS: BP 135/78; PULSE 109; RESP 16; TEMP 37.1; O2SAT 100
--- NOTE | 2024-09-06 21:34 | P.HP_ITS ---
<Statement entered by Rudolph Gifford MD - 09/07/24 12:55> Rounded on patient after nurse practitioner. Personally examined and interviewed patient. Agree with exam findings and care plan as documented. History of Present Illness *Admission Date: 09/06/24 *Reason for visit:: Diverticulitis with abdominal pain *History of present illness: This 44-year-old male has had 24 hours of significant abdominal pain. His come to the emergency room and diagnosis is that of diverticulitis with some peritonitis question free air. Patient has been evaluated by surgery and will be placed on the floor as surgery was deemed not necessary tonight. Patient has a history of this quite some time has been hospitalized approximately 11 years ago for it. He has small flareups that did not require hospitalization. Only noted recent infection was flu that took him out of work for 4 days about 2 weeks ago. Besides this event the patient reports that he is normally healthy and happy does not have regular meds except for allergy symptoms. To seasonal allergies. He denies any recent weight gain weight loss, does not smoke does not drink excessively. And is of basically normal weight Plan at this time after receiving report and information in the emergency room do agree and that the surgery has seen him we will place him on the floor and continue to monitor throughout the night.. Let the patient have ice chips tonight might be able to advance to clear liquids in the morning. Also will continue small amount of IV fluid pain control and antibiotic PFSH PFSH Disclaimer: The information contained in this section may have been updated after the patient was seen, as this information can be updated by other users. Medical History (Updated 09/06/24 @ 21:53 by Trupti Julio MD) Acute diverticulitis Generalized anxiety disorder Adult ADHD (attention deficit hyperactivity disorder) Insomnia Surgical History (Updated 09/06/24 @ 21:49 by Trupti Julio MD) S/P open reduction and internal fixation (ORIF) of fracture of lateral condyle of right femur Status post ORIF of fracture of ankle Family History Family/Other No significant family history Social History (Updated 09/06/24 @ 22:01 by Courtney Mo RN) Smoking Status: Never smoker alcohol intake: never current occupational status: employed Travel in the last 8 weeks: None household members: family housing: house Have you lived/traveled outside US in past 30 days?: No Contact w/someone who lives/traveled outside US past 30 days?: No Exposure to someone with infectious disease in past 14 days?: No Do you have a fever (greater than 100.4 F or 38 C)?: No Have you tested positive for COVID-19: No Exposed to someone with COVID-19 in past 14 days?: No Do you have a sore throat?: No Do you have a cough?: No Do you have any weakness?: No Are you experiencing any nausea/vomitting?: No Do you have any diarrhea?: No Are you experiencing any unusual bleeding?: No Do you have any muscle aches/pain?: No Do you have any abdominal pain?: Yes Are you experiencing loss of taste or smell?: No Other Medical History Have you received the Flu Vaccine for this season: No Have you received the Pneumonia Vaccine: No Review of Systems Review of Systems Review of systems:: pertinent systems reviewed and negative unless documented below Review of systems (narrative): Patient reported significant flu approximately 2 weeks ago was out of work for 4 days Constitutional Constitutional: Reports as per HPI Eyes Eyes: Reports as per HPI ENT Ears, Nose, Mouth, and Throat: Reports as per HPI *Cardiovascular Cardiovascular: Reports as per HPI *Respiratory Respiratory: Reports as per HPI *Gastrointestinal Gastrointestinal: Reports as per HPI, Reports abdominal pain, Reports cramping and Reports nausea *Genitourinary Genitourinary: Reports as per HPI *Musculoskeletal Musculoskeletal: Reports as per HPI Integumentary/Breasts Skin/Breast: Reports as per HPI *Neurologic Neurologic: Reports as per HPI Psychiatric Psychiatric: Reports as per HPI Endocrine Endocrine: Reports as per HPI Hematologic/Lymphatic Hematologic/Lymphatic: Reports as per HPI Allergic/Immunologic Allergic/Immunologic: Reports as per HPI Meds Home Medications and Allergies Home Medications ?Medication ?Instructions ?Recorded ?Confirmed ?Type dextroamphetamine-amphetamine 20 20 mg PO BID #60 tabs 08/26/24 09/06/24 Rx mg tablet (Adderall) levofloxacin 500 mg tablet 500 mg PO DAILY 09/06/24 09/06/24 History New Prescriptions to Start Prescriptions: Allergies Allergy/AdvReac Type Severity Reaction Status Date / Time No Known Allergies Allergy Verified 08/15/24 08:44 Exam Data for Last 24 hours Vital signs and Labs for Last 24 Hours: Temp Pulse Resp BP Pulse Ox O2 Del Method 98.8 F 109 H 16 135/78 100 Room Air 09/06/24 21:29 09/06/24 21:29 09/06/24 21:29 09/06/24 21:29 09/06/24 19:10 09/06/24 21:29 Laboratory Results - last 24 hr 09/06/24 19:22: WBC 22.3 H*, RBC 5.67, Hgb 17.5, Hct 48.2, MCV 85.0, MCH 30.9, MCHC 36.3 H, RDW 12.2, Plt Count 397, MPV 9.5, Neut % (Auto) 88.3 H, Lymph % (Auto) 4.7 L, [place] % (Auto) 6.0, Eos % (Auto) 0.4, Baso % (Auto) 0.2, Neut # (Auto) 19.7 H, Lymph # (Auto) 1.0, [place] # (Auto) 1.3 H, Eos # (Auto) 0.1, Baso # (Auto) 0.0, Total Counted 100, Neutrophils % (Manual) 91 H, Lymphocytes % (Manual) 4 L, Monocytes % (Manual) 5, Platelet Estimate Normal, RBC Morphology Normal, Sodium 135 L, Potassium 3.8, Chloride 101, Carbon Dioxide 24, Anion Gap 13.8, BUN 21 H, Creatinine 0.80, Estimated Creat Clear 166, Estimated GFR 105, Est GFR ( Amer) 127, Glucose 118 H, Lactate 1.3, Calcium 9.3, Total Bilirubin 1.7 H, AST 23, ALT 31, Alkaline Phosphatase 77, Total Protein 7.9, Albumin 4.9, Globulin 3.0, Albumin/Globulin Ratio 1.6, Procalcitonin 0.161, HCV Ab ARPAN w/Rflx PCR Qn Negative, HIV Ag/Ab Combo Qual Negative 09/06/24 19:53: Urine Color Yellow, Urine Appearance Clear, Urine pH 6.0, Ur Specific [place] >= 1.030, Urine Protein Trace, Urine Glucose (UA) Negative, Urine Ketones 40, Urine Blood Negative, Urine Nitrate Negative, Urine Bilirubin 1+ A, Urine Urobilinogen 0.2, Ur Leukocyte Esterase Negative, Urine RBC 20-50, Urine WBC 3-5, Ur Squamous Epith Cells 3-5, Urine Bacteria 2+, Urine Mucus 2+ I & O for Last 24 hours: Intake & Output 09/04/24 09/05/24 09/06/24 09/07/24 05:59 05:59 05:59 05:59 Weight 220 lb Radiology Reports for the Last 24 Hours: Abdominal CT scan showing diverticulitis Narrative: ben: Normal. No mass. Gallbladder and biliary ducts: Normal. No calcified stones. No ductal dilation. Pancreas: Normal. No ductal dilation. Spleen: Normal. No splenomegaly. Adrenal glands: Normal. No mass. Kidneys and ureters: Normal. No hydronephrosis. Stomach and bowel: There is wall thickening over a moderate length segment of the distal sigmoid colon with significant surrounding inflammation. Moderate diverticulosis noted throughout the distal colon. The appearance is most suggestive of acute diverticulitis. No evidence of diverticular perforation or abscess. No evidence of bowel obstruction. Small bowel loops appear unremarkable. Constitutional Constitutional: moderate distress Comments: Patient's pain is much better but noted that he was in pain before medication given. Still is quite uncomfortable *Routine HEENT Exam Head: Present normocephalic and atraumatic Eye: Present EOMI, PERRL and normal accommodation ENT: Present mucous membranes moist and oropharynx clear *Routine Neck Exam Neck: Present supple and full ROM *Routine Respiratory Exam Respiratory: Present CTA bilaterally, normal respiratory effort, able to speak in complete sentences and symmetric chest movement *Routine Cardiovascular Exam Cardiovascular: Present RRR, Normal S1, Normal S2 and tachycardia Comments: Heart is beating quite hard. Slightly elevated rate,, normal skin color no signs of paleness brisk capillary refill in all nailbeds *Routine Abdominal Exam Abdominal: Present guarding Comments: With a positive CT scan and with his history I did not palpate his abdomen due to comfort concerns *Routine Rectal Exam Rectal:: deferred *Routine Genitalia Exam Genitalia:: deferred *Routine Extremities Exam Extremities: Present full ROM *Routine Skin Exam Skin: Present intact, dry, warm and normal turgor *Routine Neurological Exam Neurological: Present alert, oriented X3, CN II-XII intact, normal reflexes, n ormal tone, vision grossly intact, hearing grossly intact and normal speech Routine Psychiatric Exam Psychiatric: Present normal affect, normal thought process, cooperative, good insight and good judgment H&P: Result Impressions . Diverticulitis with early peritonitis Assessment and Plan *Assessment and plan (1) Acute diverticulitis: Start date: 09/05/24 Start time: 08:00 Problem Comment: Patient stated this came on very quickly very suddenly. Status: Acute Category: Medical Code(s): K57.92 - Diverticulitis of intestine, part unspecified, without perforation or abscess without bleeding (2) Sepsis without septic shock: Status: Acute Category: Medical Code(s): A41.9 - Sepsis, unspecified organism (3) Abdominal pain: Status: Acute Qualifiers: Abdominal location: lower abdomen, unspecified Qualified Code(s): R10.30 - Lower abdominal pain, unspecified Category: Medical Code(s): R10.9 - Unspecified abdominal pain Plan 44 male who presented with abdominal pain. Found to have severe diverticulitis with concern for peritoneal signs. Discussed case with ER physician, request admission. I decided to admit for medical management including antibiotics and surgery consult. Patient NPO. Initiated IV antibiotics with Zosyn every 6 hours. Continue IV fluid resuscitation. Pain control with IV Dilaudid 0.55 mg every 2 hours. Monitor for toxicity. Will also administer Toradol 15 mg IV every 6 hours for moderate to severe pain. Per my review of CT, has no significant free air. Significant stranding around sigmoid colon consistent with diverticulitis. -Case discussed with surgery, hold on surgery at this time. -White count elevated at 22, hemoglobin 17. Repeat CBC, CMP, magnesium ordered for the morning.
--- NOTE | 2024-09-06 21:44 | P.CONS_ITS ---
History of Present Illness *Admission Date: 09/06/24 *History of present illness: Isidro Yañez is a 44 year old M with hx of ADHD and remote episode of diverticulitis who presents with 36 hours of worsening suprapubic pain. His pain is worst with attempt to pass flatus or defecate, and has also caused some incomplete voiding. He reports this pain is similar to his diverituclitis episode 11 years ago, which was managed nonsurgically, except not as severe. His initial VS were notable for HR 140s, and rebound tenderness on physical exam. Significant leukocytosis, no acidosis or RERE. Hgb 17.5, likely hemoconcentrated. A CT scan showed diverticulitis without perforation or abscess, images and report reviewed personally. Pain is a little better after dilaudid. Last month, he had a steroid pack for URI. [facility] Disclaimer: The information contained in this section may have been updated after the patient was seen, as this information can be updated by other users. Medical History (Updated 09/06/24 @ 21:53 by Trupti Julio MD) Acute diverticulitis Generalized anxiety disorder Adult ADHD (attention deficit hyperactivity disorder) Insomnia Surgical History (Updated 09/06/24 @ 21:49 by Trupti Julio MD) S/P open reduction and internal fixation (ORIF) of fracture of lateral condyle of right femur Status post ORIF of fracture of ankle Family History Family/Other No significant family history Social History Smoking Status: Never smoker alcohol intake: never current occupational status: employed Travel in the last 8 weeks: None household members: family housing: house Have you lived/traveled outside US in past 30 days?: No Contact w/someone who lives/traveled outside US past 30 days?: No Exposure to someone with infectious disease in past 14 days?: No Do you have a fever (greater than 100.4 F or 38 C)?: No Have you tested positive for COVID-19: No Exposed to someone with COVID-19 in past 14 days?: No Do you have a sore throat?: No Do you have a cough?: No Do you have any weakness?: No Do you have any diarrhea?: No Are you experiencing any unusual bleeding?: No Do you have any muscle aches/pain?: No Do you have any abdominal pain?: Yes Are you experiencing loss of taste or smell?: No Review of Systems Review of Systems Review of systems:: pertinent systems reviewed and negative unless documented below Constitutional Constitutional: Reports system reviewed and no additional complaints, except as documented Eyes Eyes: Reports system reviewed and no additional complaints, except as documented ENT Ears, Nose, Mouth, and Throat: Reports system reviewed and no additional complaints, except as documented *Cardiovascular Cardiovascular: Reports system reviewed and no additional complaints, except as documented *Respiratory Respiratory: Reports system reviewed and no additional complaints, except as documented *Gastrointestinal Comments: LUQ abdominal pain, no emesis/nausea *Genitourinary Comments: incomplete voiding *Musculoskeletal Musculoskeletal: Reports system reviewed and no additional complaints, except as documented Integumentary/Breasts Skin/Breast: Reports system reviewed and no additional complaints, except as documented *Neurologic Neurologic: Reports system reviewed and no additional complaints, except as documented and Reports as per HPI Psychiatric Psychiatric: Reports system reviewed and no additional complaints, except as documented Endocrine Endocrine: Reports system reviewed and no additional complaints, except as documented Hematologic/Lymphatic Hematologic/Lymphatic: Reports system reviewed and no additional complaints, except as documented Allergic/Immunologic Allergic/Immunologic: Reports system reviewed and no additional complaints, except as documented Meds Home Medications and Allergies Home Medications ?Medication ?Instructions ?Recorded ?Confirmed ?Type [id number]-[id number] 5 ml PO Q4-6H PRN cold symptoms 08/15/24 08/15/24 Rx 2 mg-30 mg-10 mg/5 mL oral syrup #118 mL (Bromfed DM) methylprednisolone 4 mg tablets in See Rx Instructions PO PER PKG DIR 08/15/24 08/15/24 Rx a dose pack #21 tabs dextroamphetamine-amphetamine 20 20 mg PO BID #60 tabs 08/26/24 08/26/24 Rx mg tablet (Adderall) New Prescriptions to Start Prescriptions: Allergies Allergy/AdvReac Type Severity Reaction Status Date / Time No Known Allergies Allergy Verified 08/15/24 08:44 Exam (Inpt) Vital signs and Labs for Last 24 Hours: Temp Pulse Resp BP Pulse Ox O2 Del Method 98.8 F 109 H 16 135/78 100 Room Air 09/06/24 21:29 09/06/24 21:29 09/06/24 21:29 09/06/24 21:29 09/06/24 19:10 09/06/24 21:29 Laboratory Results - last 24 hr 09/06/24 19:22: WBC 22.3 H*, RBC 5.67, Hgb 17.5, Hct 48.2, MCV 85.0, MCH 30.9, M CHC 36.3 H, RDW 12.2, Plt Count 397, MPV 9.5, Neut % (Auto) 88.3 H, Lymph % (Auto) 4.7 L, [place] % (Auto) 6.0, Eos % (Auto) 0.4, Baso % (Auto) 0.2, Neut # (Auto) 19.7 H, Lymph # (Auto) 1.0, [place] # (Auto) 1.3 H, Eos # (Auto) 0.1, Baso # (Auto) 0.0, Total Counted 100, Neutrophils % (Manual) 91 H, Lymphocytes % (Manual) 4 L, Monocytes % (Manual) 5, Platelet Estimate Normal, RBC Morphology Normal, Sodium 135 L, Potassium 3.8, Chloride 101, Carbon Dioxide 24, Anion Gap 13.8, BUN 21 H, Creatinine 0.80, Estimated Creat Clear 166, Estimated GFR 105, Est GFR ( Amer) 127, Glucose 118 H, Lactate 1.3, Calcium 9.3, Total Bilirubin 1.7 H, AST 23, ALT 31, Alkaline Phosphatase 77, Total Protein 7.9, Albumin 4.9, Globulin 3.0, Albumin/Globulin Ratio 1.6, Procalcitonin 0.161, HCV Ab ARPAN w/Rflx PCR Qn Negative, HIV Ag/Ab Combo Qual Negative 09/06/24 19:53: Urine Color Yellow, Urine Appearance Clear, Urine pH 6.0, Ur Specific [place] >= 1.030, Urine Protein Trace, Urine Glucose (UA) Negative, Urine Ketones 40, Urine Blood Negative, Urine Nitrate Negative, Urine Bilirubin 1+ A, Urine Urobilinogen 0.2, Ur Leukocyte Esterase Negative, Urine RBC 20-50, Urine WBC 3-5, Ur Squamous Epith Cells 3-5, Urine Bacteria 2+, Urine Mucus 2+ I & O for Labs for Last 24 Hours: Intake & Output 0309/04/24 09/05/24 09/06/24 23:59 23:59 23:59 23:59 Weight 220 lb Constitutional: no acute distress Head: Present normocephalic and atraumatic Neck: Present normal inspection and trachea midline; Absent tenderness Respiratory: Present CTA bilaterally; Absent accessory muscle use Cardiac: Present Regular Rhythm and Tachycardia; Absent Audible Murmur GI: Present soft; Absent distention Comments:: Rebound tenderness in b/l lower quadrants, L>R, no generalized peritonitis, no surgical scars Rectal (male): Present deferred (male): Present deferred Extremities: Present normal inspection; Absent edema or cyanosis Skin: Present intact; Absent cyanosis or erythema Neuro: Present Cranial Nerve 2-12 Intact, alert, awake and oriented x 3 Results Labs 09/06/24 19:22 09/06/24 19:22 Labs: Laboratory Results - last 24 hr 09/06/24 19:22: WBC 22.3 H*, RBC 5.67, Hgb 17.5, Hct 48.2, MCV 85.0, MCH 30.9, M CHC 36.3 H, RDW 12.2, Plt Count 397, MPV 9.5, Neut % (Auto) 88.3 H, Lymph % (Auto) 4.7 L, [place] % (Auto) 6.0, Eos % (Auto) 0.4, Baso % (Auto) 0.2, Neut # (Auto) 19.7 H, Lymph # (Auto) 1.0, [place] # (Auto) 1.3 H, Eos # (Auto) 0.1, Baso # (Auto) 0.0, Total Counted 100, Neutrophils % (Manual) 91 H, Lymphocytes % (Manual) 4 L, Monocytes % (Manual) 5, Platelet Estimate Normal, RBC Morphology Normal, Sodium 135 L, Potassium 3.8, Chloride 101, Carbon Dioxide 24, Anion Gap 13.8, BUN 21 H, Creatinine 0.80, Estimated Creat Clear 166, Estimated GFR 105, Est GFR ( Amer) 127, Glucose 118 H, Lactate 1.3, Calcium 9.3, Total Bilirubin 1.7 H, AST 23, ALT 31, Alkaline Phosphatase 77, Total Protein 7.9, Albumin 4.9, Globulin 3.0, Albumin/Globulin Ratio 1.6, Procalcitonin 0.161, HCV Ab ARPAN w/Rflx PCR Qn Negative, HIV Ag/Ab Combo Qual Negative 09/06/24 19:53: Urine Color Yellow, Urine Appearance Clear, Urine pH 6.0, Ur Specific [place] >= 1.030, Urine Protein Trace, Urine Glucose (UA) Negative, Urine Ketones 40, Urine Blood Negative, Urine Nitrate Negative, Urine Bilirubin 1+ A, Urine Urobilinogen 0.2, Ur Leukocyte Esterase Negative, Urine RBC 20-50, Urine WBC 3-5, Ur Squamous Epith Cells 3-5, Urine Bacteria 2+, Urine Mucus 2+ Imaging CT scan - abdomen: report reviewed and image reviewed CT scan - pelvis: report reviewed and image reviewed Assessment and Plan *Assessment and plan (1) Acute diverticulitis: Problem Comment: Patient stated this came on very quickly very suddenly. Status: Acute Category: Medical Code(s): K57.92 - Diverticulitis of intestine, part unspecified, without perforation or abscess without bleeding Plan 44 yo M with acute, nonperforated diverticulitis. Leukocytosis, SIRS response. Will most likely improve without acute surgical intervention. Zosyn IV, NPO with ice chips/sips with meds. Pain control. Ok for Toradol and/or narcotics if needed. Serial abdominal exams. The r/b/a of treatment plan were discussed with patient and his , and they were given oppportunity to ask questions. Will follow.
[2024-09-06 21:47] LABS: C-Reactive Protein 148.2 mg/L (0-4)
[2024-09-06] MEDS: FAMOTIDINE 20MG/2ML VIAL 20 MG IV (21:49)
[2024-09-06] MEDS: 0.9 % SODIUM CHLORIDE 1000ML 1,000 ML 75 ML IV (21:49)
[2024-09-06] MEDS: SODIUM CHLORIDE 0.9% 10ML VIAL 8 ML IV (21:49)
[2024-09-06 22:00] VITALS: BP 134/80; PULSE 109; RESP 16; TEMP 36.6; O2SAT 98
[2024-09-07] VITALS: BP 125/81; PULSE 104; RESP 18; TEMP 37.1; O2SAT 96
[2024-09-07] MEDS: PIPERACILLIN/TAZO 3.375 GM in 0.9 % SODIUM CHLORIDE 50 ML IV ×4 (02:29→20:48)
[2024-09-07 04:00] VITALS: BP 107/61; PULSE 100; RESP 16; TEMP 37.5; O2SAT 96; BMI 30.8
--- NOTE | 2024-09-07 06:22 | PC.NURSE ---
Pt is A&Ox4. Pt has c/o abdominal pain and has been treated per MAR. Pt has tolerated fluid and antibiotic therapy well. Pt has had no acute changes this shift to note. Family member remains at bedside
[2024-09-07 07:55] LABS: Eosinophils % 0.1 % (0.1-12.0); Neutrophils # 12.2 K/mm3 (1.8-7.8); Neutrophils % 85.6 % (37.0-80.0)
[2024-09-07 08:00] VITALS: BP 138/84; PULSE 108; RESP 16; TEMP 37.6; O2SAT 95
[2024-09-07 08:05] LABS: Alanine Aminotransferase 18 U/L (12-78); Albumin Level 3.6 g/dl (3.5-5.0); Albumin/Globulin Ratio 1.5 (1.1-1.8); Alkaline Phosphatase 60 U/L (38-126); Anion Gap 7.5 mEq/L (5-15); Aspartate Amino Transferase 15 U/L (17-59); Bilirubin,Total 1.2 mg/dl (0.2-1.3); Blood Urea Nitrogen 19 mg/dl (9-20); Calcium 8.3 mg/dl (8.4-10.2); Carbon Dioxide 25 mmol/L (22.0-30.0); Chloride 106 mmol/L (98-107); Creatinine Clearance Estimated 166 mL/min (50-200); Estimated Glomerular Filt Rate 105 ml/min (>60); GFR (African American) 127 ML/MIN (>60); Globulin 2.4 g/dL (1.3-3.2); Glucose 103 mg/dl (74-100); Magnesium 1.7 mg/dl (1.6-2.3); Potassium 3.5 mmoL/L (3.5-5.1); Sodium 135 mmol/L (136-145)
[2024-09-07 08:06] LABS: Lactic Acid 0.7 mmol/L (0.7-2.1)
[2024-09-07] MEDS: FAMOTIDINE 20MG/2ML VIAL 20 MG IV ×2 (08:20→20:50)
[2024-09-07 08:25] LABS: Basophils % 0.1 % (0.1-2.0); Hematocrit 38.3 % (42.0-52.0); Lymphocytes % 6.9 % (10-50); Mean Corpuscular Hemoglobin 30.9 pg (27.0-31.2); Mean Corpuscular Volume 85.9 fl (80-94); Monocytes % 6.9 % (1.7-9.3); Platelet Count 269 K/mm3 (142-424); Red Blood Count 4.46 M/mm3 (4.60-6.20); Red Cell Distribution Width 12.3 % (11.5-17.5); White Blood Count 14.3 K/mm3 (4.8-10.8)
[2024-09-07] MEDS: KETOROLAC 30MG/ML VIAL 15 MG IV ×2 (08:26)
[2024-09-07 08:27] LABS: Hemoglobin 13.8 g/dL (14.1-18.0)
[2024-09-07] MEDS: 0.9 % SODIUM CHLORIDE 1000ML 1,000 ML 75 ML IV ×2 (08:27→23:21)
--- NOTE | 2024-09-07 08:53 | HMH.PHAINT1 ---
Pharmacy Intervention Comments: MEDICATION RECONCILIATION COMPLETED ON PATIENT USING EXTERNAL FILL HISTORY FROM PHARMACY. -DONALD ROBLES, EVAD
--- NOTE | 2024-09-07 09:42 | P.PN_ITS ---
Subjective *Date: 09/07/24 *Time: 12:51 Interval history: Afebrile this morning. Stable on room air. Vitals showing improvement, still has mild tachycardia in the 90s. Denies chest pain. at bedside. Passing gas Medical Exam Vital signs and Labs for Last 24 Hours: Vital Signs Temp Pulse Pulse Resp BP BP Pulse Ox 09/07/24 08:39 09/07/24 08:00 09/07/24 08:00 99.6 F 108 H 16 138/84 95 09/07/24 06:39 09/07/24 05:00 09/07/24 04:00 99.5 F 100 H 16 107/61 L 96 09/07/24 02:37 09/07/24 01:00 09/07/24 00:00 98.7 F 104 H 18 125/81 96 09/06/24 23:00 09/06/24 22:00 97.8 F 109 H 16 134/80 98 09/06/24 21:31 09/06/24 21:29 98.8 F 109 H 16 135/78 09/06/24 19:10 98.8 F 139 H 18 137/97 H 100 O2 Del Method 09/07/24 08:39 Room Air 09/07/24 08:00 Room Air 09/07/24 08:00 Room Air 09/07/24 06:39 Room Air 09/07/24 05:00 Room Air 09/07/24 04:00 Room Air 09/07/24 02:37 Room Air 09/07/24 01:00 Room Air 09/07/24 00:00 Room Air 09/06/24 23:00 Room Air 09/06/24 22:00 Room Air 09/06/24 21:31 Room Air 09/06/24 21:29 Room Air 09/06/24 19:10 Intake and Output 09/06/24 09/07/24 09/07/24 23:59 07:59 15:59 Intake Total 150 / 200 50 / 200 Output Total 0 / 0 Balance 0 / 150 150 / 200 50 / 200 Intake: Intake, Oral Amount 0 / 0 Intake, Total IV Amount 150 / 200 50 / 200 0.9 % Sodium Chloride 1000ML 1, 150 / 150 000 ml @ 75 mls/hr IV .[id number] [facility] Rx#:[id number] Piperacillin/Tazo 3.375 gm In 0 50 / 50 .9 % Sodium Chloride 50 ml @ 100 mls/hr IV Q6H [facility] Rx#: [id number] Output: Output, Urine Amount 0 / 0 Other: Number of Unmeasured Voids 1 Weight 99.79 kg 99.79 kg Patient Weight 09/07/24 23:59 Weight 99.79 kg Laboratory Results - last 24 hr 09/06/24 19:22: WBC 22.3 H*, RBC 5.67, Hgb 17.5, Hct 48.2, MCV 85.0, MCH 30.9, MCHC 36.3 H, RDW 12.2, Plt Count 397, MPV 9.5, Neut % (Auto) 88.3 H, Lymph % (Auto) 4.7 L, [place] % (Auto) 6.0, Eos % (Auto) 0.4, Baso % (Auto) 0.2, Neut # (Auto) 19.7 H, Lymph # (Auto) 1.0, [place] # (Auto) 1.3 H, Eos # (Auto) 0.1, Baso # (Auto) 0.0, Total Counted 100, Neutrophils % (Manual) 91 H, Lymphocytes % (Manual) 4 L, Monocytes % (Manual) 5, Platelet Estimate Normal, RBC Morphology Normal, Sodium 135 L, Potassium 3.8, Chloride 101, Carbon Dioxide 24, Anion Gap 13.8, BUN 21 H, Creatinine 0.80, Estimated Creat Clear 166, Estimated GFR 105, Est GFR ( Amer) 127, Glucose 118 H, Lactate 1.3, Calcium 9.3, Total Bilirubin 1.7 H, AST 23, ALT 31, Alkaline Phosphatase 77, C-Reactive Protein 148.2 H, Total Protein 7.9, Albumin 4.9, Globulin 3.0, Albumin/Globulin Ratio 1.6, Procalcitonin 0.161, HCV Ab ARPAN w/Rflx PCR Qn Negative, HIV Ag/Ab Combo Qual Negative 09/06/24 19:53: Urine Color Yellow, Urine Appearance Clear, Urine pH 6.0, Ur Spe cific [place] >= 1.030, Urine Protein Trace, Urine Glucose (UA) Negative, Urine Ketones 40, Urine Blood Negative, Urine Nitrate Negative, Urine Bilirubin 1+ A, Urine Urobilinogen 0.2, Ur Leukocyte Esterase Negative, Urine RBC 20-50, Urine WBC 3-5, Ur Squamous Epith Cells 3-5, Urine Bacteria 2+, Urine Mucus 2+ 09/07/24 07:05: WBC 14.3 H D, RBC 4.46 L, Hgb 13.8 L D, Hct 38.3 L, MCV 85.9, MCH 30.9, MCHC 36.0 H, RDW 12.3, Plt Count 269 D, MPV 10.0, Neut % (Auto) 85.6 H, Lymph % (Auto) 6.9 L, [place] % (Auto) 6.9, Eos % (Auto) 0.1, Baso % (Auto) 0.1, Neut # (Auto) 12.2 H, Lymph # (Auto) 1.0, [place] # (Auto) 1.0, Eos # (Auto) 0.0, Baso # (Auto) 0.0, Sodium 135 L, Potassium 3.5, Chloride 106, Carbon Dioxide 25, Anion Gap 7.5, BUN 19, Creatinine 0.80, Estimated Creat Clear 166, Estimated GFR 105, Est GFR ( Amer) 127, Glucose 103 H, Lactate 0.7, Calcium 8.3 L, Magnesium 1.7, Total Bilirubin 1.2, AST 15 L D, ALT 18 D, Alkaline Phosphatase 60, Total Protein 6.0 L, Albumin 3.6 D, Globulin 2.4, Albumin/Globulin Ratio 1.5 I & O for Labs for Last 24 Hours: Intake & Output 09/04/24 09/05/24 09/06/24 09/07/24 23:59 23:59 23:59 23:59 Intake Total 200 / 200 Output Total 0 / 0 Balance 0 / 150 200 / 200 Weight 99.79 kg 99.79 kg Constitutional: Present mild distress, average body habitus and cooperative Head: Present atraumatic and normocephalic ENT: Present normal exam Neck: Present normal inspection Respiratory: Present normal respiratory effort; Absent respiratory distress, rhonchi, stridor or wheezes Cardiac: Present Reg Rate and Rhythm GI: Present soft, tenderness (Significant tenderness on palpation, worse with rebound.), guarding, rebound and normal bowel sounds; Absent distention or rigidity Extremities: Present normal inspection and full ROM Skin: Present intact; Absent erythema Neuro: Present Grossly Intact, alert, awake, oriented x 3 and moves all extremities Assessment and Plan *Assessment and plan (1) Acute diverticulitis: Start date: 09/05/24 Start time: 08:00 Problem Comment: Patient stated this came on very quickly very suddenly. Status: Acute Category: Medical Code(s): K57.92 - Diverticulitis of intestine, part unspecified, without perforation or abscess without bleeding (2) Sepsis without septic shock: Status: Acute Category: Medical Code(s): A41.9 - Sepsis, unspecified organism (3) Abdominal pain: Status: Acute Qualifiers: Abdominal location: lower abdomen, unspecified Qualified Code(s): R10.30 - Lower abdominal pain, unspecified Category: Medical Code(s): R10.9 - Unspecified abdominal pain Plan 44 male who presented with abdominal pain. Found to have severe diverticulitis with concern for peritoneal signs. Discussed case with ER physician, request admission. I decided to admit for medical management including antibiotics and surgery consult. Patient NPO. Continues to require inpatient management. Problems addressed as follows: Diverticulitis Peritonitis -Continue Zosyn 3.375 g every 6 hours IV. Seeing improvement in white count. Down from 22-14. Repeat CBC, CMP, magnesium ordered for the morning. -Kidney function normal with BUN 19, creatinine 0.8. - Remains n.p.o. Continue IV fluids with normal saline at 75 cc an hour. -Continue IV Dilaudid 0.5 mg every 2 hours. Monitor for toxicity. Will also administer Toradol 15 mg IV every 6 hours for moderate to severe pain. -Discussed case with surgery, will continue to monitor with serial exams and conservative management. No plan for colostomy today. - Repeat CBC, CMP, magnesium ordered for the morning. Full code
--- NOTE | 2024-09-07 11:28 | P.CONS_ITS ---
History of Present Illness *Admission Date: 09/06/24 *Reason for visit:: *History of present illness: Isidro Yañez is a 44 year old M with hx of ADHD and remote episode of diverticulitis who presents with 36 hours of worsening suprapubic pain. His pain is worst with attempt to pass flatus or defecate, and has also caused some incomplete voiding. He reports this pain is similar to his diverituclitis episode 11 years ago, which was managed nonsurgically, except not as severe. His initial VS were notable for HR 140s, and rebound tenderness on physical exam. Significant leukocytosis, no acidosis or RERE. Hgb 17.5, likely hemoconcentrated. A CT scan showed diverticulitis without perforation or abscess, images and report reviewed personally. Pain is a little better after dilaudid. Last month, he had a steroid pack for URI. [facility] Disclaimer: The information contained in this section may have been updated after the patient was seen, as this information can be updated by other users. Medical History (Updated 09/06/24 @ 21:53 by Trupti Julio MD) Acute diverticulitis Generalized anxiety disorder Adult ADHD (attention deficit hyperactivity disorder) Insomnia Surgical History (Updated 09/06/24 @ 21:49 by Trupti Julio MD) S/P open reduction and internal fixation (ORIF) of fracture of lateral condyle of right femur Status post ORIF of fracture of ankle Family History Family/Other No significant family history Social History (Updated 09/06/24 @ 22:01 by Courtney Mo RN) Smoking Status: Never smoker alcohol intake: never current occupational status: employed Travel in the last 8 weeks: None household members: family housing: house Review of Systems *Neurologic Neurologic: Reports system reviewed and no additional complaints, except as documented and Reports as per [facility] Meds Home Medications and Allergies Home Medications ?Medication ?Instructions ?Recorded ?Confirmed ?Type dextroamphetamine-amphetamine 20 20 mg PO BID #60 tabs 08/26/24 09/06/24 Rx mg tablet (Adderall) levofloxacin 500 mg tablet 500 mg PO DAILY 09/06/24 09/06/24 History New Prescriptions to Start Prescriptions: Allergies Allergy/AdvReac Type Severity Reaction Status Date / Time No Known Allergies Allergy Verified 08/15/24 08:44 Exam (Inpt) Vital signs and Labs for Last 24 Hours: Temp Pulse Resp BP Pulse Ox O2 Del Method 99.6 F 108 H 16 138/84 95 Room Air 09/07/24 08:00 09/07/24 08:00 09/07/24 08:00 09/07/24 08:00 09/07/24 08:00 09/07/24 08:39 Laboratory Results - last 24 hr 09/06/24 19:22: WBC 22.3 H*, RBC 5.67, Hgb 17.5, Hct 48.2, MCV 85.0, MCH 30.9, M CHC 36.3 H, RDW 12.2, Plt Count 397, MPV 9.5, Neut % (Auto) 88.3 H, Lymph % (Auto) 4.7 L, [place] % (Auto) 6.0, Eos % (Auto) 0.4, Baso % (Auto) 0.2, Neut # (Auto) 19.7 H, Lymph # (Auto) 1.0, [place] # (Auto) 1.3 H, Eos # (Auto) 0.1, Baso # (Auto) 0.0, Total Counted 100, Neutrophils % (Manual) 91 H, Lymphocytes % (Manual) 4 L, Monocytes % (Manual) 5, Platelet Estimate Normal, RBC Morphology Normal, Sodium 135 L, Potassium 3.8, Chloride 101, Carbon Dioxide 24, Anion Gap 13.8, BUN 21 H, Creatinine 0.80, Estimated Creat Clear 166, Estimated GFR 105, Est GFR ( Amer) 127, Glucose 118 H, Lactate 1.3, Calcium 9.3, Total Bilirubin 1.7 H, AST 23, ALT 31, Alkaline Phosphatase 77, C-Reactive Protein 148.2 H, Total Protein 7.9, Albumin 4.9, Globulin 3.0, Albumin/Globulin Ratio 1.6, Procalcitonin 0.161, HCV Ab ARPAN w/Rflx PCR Qn Negative, HIV Ag/Ab Combo Qual Negative 09/06/24 19:53: Urine Color Yellow, Urine Appearance Clear, Urine pH 6.0, Ur Specific [place] >= 1.030, Urine Protein Trace, Urine Glucose (UA) Negative, Urine Ketones 40, Urine Blood Negative, Urine Nitrate Negative, Urine Bilirubin 1+ A, Urine Urobilinogen 0.2, Ur Leukocyte Esterase Negative, Urine RBC 20-50, Urine WBC 3-5, Ur Squamous Epith Cells 3-5, Urine Bacteria 2+, Urine Mucus 2+ 09/07/24 07:05: WBC 14.3 H D, RBC 4.46 L, Hgb 13.8 L D, Hct 38.3 L, MCV 85.9, MCH 30.9, MCHC 36.0 H, RDW 12.3, Plt Count 269 D, MPV 10.0, Neut % (Auto) 85.6 H, Lymph % (Auto) 6.9 L, [place] % (Auto) 6.9, Eos % (Auto) 0.1, Baso % (Auto) 0.1, Neut # (Auto) 12.2 H, Lymph # (Auto) 1.0, [place] # (Auto) 1.0, Eos # (Auto) 0.0, Baso # (Auto) 0.0, Sodium 135 L, Potassium 3.5, Chloride 106, Carbon Dioxide 25, Anion Gap 7.5, BUN 19, Creatinine 0.80, Estimated Creat Clear 166, Estimated GFR 105, Est GFR ( Amer) 127, Glucose 103 H, Lactate 0.7, Calcium 8.3 L, Magnesium 1.7, Total Bilirubin 1.2, AST 15 L D, ALT 18 D, Alkaline Phosphatase 60, Total Protein 6.0 L, Albumin 3.6 D, Globulin 2.4, Albumin/Globulin Ratio 1.5 I & O for Labs for Last 24 Hours: Intake & Output 09/04/24 09/05/24 09/06/24 09/07/24 23:59 23:59 23:59 23:59 Intake Total 200 / 200 Output Total 0 / 0 Balance 0 / 150 200 / 200 Weight 220 lb 219 lb 15.988 oz Results Labs 09/07/24 07:05 09/07/24 07:05 Labs: Laboratory Results - last 24 hr 09/06/24 19:22: WBC 22.3 H*, RBC 5.67, Hgb 17.5, Hct 48.2, MCV 85.0, MCH 30.9, M CHC 36.3 H, RDW 12.2, Plt Count 397, MPV 9.5, Neut % (Auto) 88.3 H, Lymph % (Auto) 4.7 L, [place] % (Auto) 6.0, Eos % (Auto) 0.4, Baso % (Auto) 0.2, Neut # (Auto) 19.7 H, Lymph # (Auto) 1.0, [place] # (Auto) 1.3 H, Eos # (Auto) 0.1, Baso # (Auto) 0.0, Total Counted 100, Neutrophils % (Manual) 91 H, Lymphocytes % (Manual) 4 L, Monocytes % (Manual) 5, Platelet Estimate Normal, RBC Morphology Normal, Sodium 135 L, Potassium 3.8, Chloride 101, Carbon Dioxide 24, Anion Gap 13.8, BUN 21 H, Creatinine 0.80, Estimated Creat Clear 166, Estimated GFR 105, Est GFR ( Amer) 127, Glucose 118 H, Lactate 1.3, Calcium 9.3, Total Bilirubin 1.7 H, AST 23, ALT 31, Alkaline Phosphatase 77, C-Reactive Protein 148.2 H, Total Protein 7.9, Albumin 4.9, Globulin 3.0, Albumin/Globulin Ratio 1.6, Procalcitonin 0.161, HCV Ab ARPAN w/Rflx PCR Qn Negative, HIV Ag/Ab Combo Qual Negative 09/06/24 19:53: Urine Color Yellow, Urine Appearance Clear, Urine pH 6.0, Ur Specific [place] >= 1.030, Urine Protein Trace, Urine Glucose (UA) Negative, Urine Ketones 40, Urine Blood Negative, Urine Nitrate Negative, Urine Bilirubin 1+ A, Urine Urobilinogen 0.2, Ur Leukocyte Esterase Negative, Urine RBC 20-50, Urine WBC 3-5, Ur Squamous Epith Cells 3-5, Urine Bacteria 2+, Urine Mucus 2+ 09/07/24 07:05: WBC 14.3 H D, RBC 4.46 L, Hgb 13.8 L D, Hct 38.3 L, MCV 85.9, MCH 30.9, MCHC 36.0 H, RDW 12.3, Plt Count 269 D, MPV 10.0, Neut % (Auto) 85.6 H, Lymph % (Auto) 6.9 L, [place] % (Auto) 6.9, Eos % (Auto) 0.1, Baso % (Auto) 0.1, Neut # (Auto) 12.2 H, Lymph # (Auto) 1.0, [place] # (Auto) 1.0, Eos # (Auto) 0.0, Baso # (Auto) 0.0, Sodium 135 L, Potassium 3.5, Chloride 106, Carbon Dioxide 25, Anion Gap 7.5, BUN 19, Creatinine 0.80, Estimated Creat Clear 166, Estimated GFR 105, Est GFR ( Amer) 127, Glucose 103 H, Lactate 0.7, Calcium 8.3 L, Magnesium 1.7, Total Bilirubin 1.2, AST 15 L D, ALT 18 D, Alkaline Phosphatase 60, Total Protein 6.0 L, Albumin 3.6 D, Globulin 2.4, Albumin/Globulin Ratio 1.5
[2024-09-07 12:00] VITALS: BP 134/85; PULSE 95; RESP 17; TEMP 36.9; O2SAT 99
[2024-09-07] MEDS: HYDROMORPHONE 2MG/ML SYRINGE 0.5 MG IV ×2 (13:30→20:48)
--- NOTE | 2024-09-07 13:53 | P.PN_ITS ---
Subjective Narrative: No acute events overnight. Afebrile. He continues to have lower abdominal pain, and he wishes the pain meds were stronger, but it actually is not as bad as yesterday. Denies vomiting or nausea. He has been able to void, passed flatus, and have a small bowel movement. Overall, he says he is feeling better than yesterday. Exam Data for Last 24 hours Vital signs and Labs for Last 24 Hours: Temp Pulse Resp BP Pulse Ox O2 Del Method 98.4 F 95 H 17 134/85 99 Room Air 09/07/24 12:00 09/07/24 12:00 09/07/24 12:00 09/07/24 12:00 09/07/24 12:00 09/07/24 12:00 Laboratory Results - last 24 hr 09/06/24 19:22: WBC 22.3 H*, RBC 5.67, Hgb 17.5, Hct 48.2, MCV 85.0, MCH 30.9, MCHC 36.3 H, RDW 12.2, Plt Count 397, MPV 9.5, Neut % (Auto) 88.3 H, Lymph % (Auto) 4.7 L, [place] % (Auto) 6.0, Eos % (Auto) 0.4, Baso % (Auto) 0.2, Neut # (Auto) 19.7 H, Lymph # (Auto) 1.0, [place] # (Auto) 1.3 H, Eos # (Auto) 0.1, Baso # (Auto) 0.0, Total Counted 100, Neutrophils % (Manual) 91 H, Lymphocytes % (Manual) 4 L, Monocytes % (Manual) 5, Platelet Estimate Normal, RBC Morphology Normal, Sodium 135 L, Potassium 3.8, Chloride 101, Carbon Dioxide 24, Anion Gap 13.8, BUN 21 H, Creatinine 0.80, Estimated Creat Clear 166, Estimated GFR 105, Est GFR ( Amer) 127, Glucose 118 H, Lactate 1.3, Calcium 9.3, Total Bilirubin 1.7 H, AST 23, ALT 31, Alkaline Phosphatase 77, C-Reactive Protein 148.2 H, Total Protein 7.9, Albumin 4.9, Globulin 3.0, Albumin/Globulin Ratio 1.6, Procalcitonin 0.161, HCV Ab ARPAN w/Rflx PCR Qn Negative, HIV Ag/Ab Combo Qual Negative 09/06/24 19:53: Urine Color Yellow, Urine Appearance Clear, Urine pH 6.0, Ur Specific [place] >= 1.030, Urine Protein Trace, Urine Glucose (UA) Negative, Urine Ketones 40, Urine Blood Negative, Urine Nitrate Negative, Urine Bilirubin 1+ A, Urine Urobilinogen 0.2, Ur Leukocyte Esterase Negative, Urine RBC 20-50, Urine WBC 3-5, Ur Squamous Epith Cells 3-5, Urine Bacteria 2+, Urine Mucus 2+ 09/07/24 07:05: WBC 14.3 H D, RBC 4.46 L, Hgb 13.8 L D, Hct 38.3 L, MCV 85.9, MCH 30.9, MCHC 36.0 H, RDW 12.3, Plt Count 269 D, MPV 10.0, Neut % (Auto) 85.6 H, Lymph % (Auto) 6.9 L, [place] % (Auto) 6.9, Eos % (Auto) 0.1, Baso % (Auto) 0.1, Neut # (Auto) 12.2 H, Lymph # (Auto) 1.0, [place] # (Auto) 1.0, Eos # (Auto) 0.0, Baso # (Auto) 0.0, Sodium 135 L, Potassium 3.5, Chloride 106, Carbon Dioxide 25, Anion Gap 7.5, BUN 19, Creatinine 0.80, Estimated Creat Clear 166, Estimated GFR 105, Est GFR ( Amer) 127, Glucose 103 H, Lactate 0.7, Calcium 8.3 L, Magnesium 1.7, Total Bilirubin 1.2, AST 15 L D, ALT 18 D, Alkaline Phosphatase 60, Total Protein 6.0 L, Albumin 3.6 D, Globulin 2.4, Albumin/Globulin Ratio 1.5 I & O for Last 24 hours: Intake & Output 09/04/24 09/05/24 09/06/24 09/07/24 23:59 23:59 23:59 23:59 Intake Total 200 / 200 Output Total 0 / 0 0 / 0 Balance 0 / 150 200 / 200 Weight 220 lb 219 lb 15.988 oz Constitutional Constitutional: no acute distress *Routine Abdominal Exam Abdominal: Present soft Comments: Hyperactive bowel sounds without high pitches or rashes. Still has rebound tenderness in the left lower quadrant, but less than yesterday. Progress Note: A&P Assessment and plan (1) Acute diverticulitis: Status: Acute Assessment and plan: Leukocytosis is decreasing, and pain is also decreasing with antibiotics and GI rest. Continue n.p.o. except sips and chips with meds. Continue Toradol and narcotics for pain. His abdominal exam continues to have some rebound tenderness, but he is improving, and the CT scan yesterday did not show any free air or free fluid. Would continue with conservative nonoperative management of diverticulitis continue Zosyn.. Can re-image with CT scan IF he has acute worsening of pain, worsening tachycardia, hypotension, or worsening labs. (2) Sepsis without septic shock: Status: Acute (3) Abdominal pain: Status: Acute
--- NOTE | 2024-09-07 14:10 | PC.NURSE ---
Aox 4, up ad sandeep, getting iv abx, 18g L AC ns @ 75ml/hr, has gotten pain meds twice this shift.
[2024-09-07 16:00] VITALS: BP 139/86; PULSE 106; RESP 18; TEMP 36.7; O2SAT 97
[2024-09-07 19:49] VITALS: BP 133/77; PULSE 105; RESP 16; TEMP 37.4; O2SAT 97
[2024-09-08] VITALS (7 sets, daily range): BP systolic 124–142; BP diastolic 66–97; PULSE 89–100; RESP 17–18; TEMP 36.6–37.1; O2SAT 96–100; BMI 30.9
[2024-09-08] MEDS: PIPERACILLIN/TAZO 3.375 GM in 0.9 % SODIUM CHLORIDE 50 ML IV ×4 (05:02→23:00)
--- NOTE | 2024-09-08 05:04 | ECG_ITS ---
APPROVED REPORT Exam: Resting ECG HR:96 bpm ECG Measurements Heart Rate 96 AXES KS 151 P 35 QRSd 94 QRS 20 QT 364 T 42 QTc 417 Conclusion SINUS RHYTHM NORMAL ECG UNCONFIRMED REPORT Electronically signed by : Brandyn Colón MD 09/10/2024 21:06:54
--- NOTE | 2024-09-08 05:09 | P.EN_ITS ---
PROBLEM: Nurse advised me that patient had gotten out of bed to go to the bathroom on returning to bed he had chest pain and shortness of breath. Vital signs was done by nurse and are all in acceptable range EXAM. On arriving to the room I find the gentleman lying in bed. Says he is having less chest pain but there feels like there is a knot in his throat under the sternum and the top third. He says it hurts more to take of breath. Lungs : Clear to auscultation throughout no signs of wheezing no signs of rattle to expand both sides of chest equally. Skin [place] warm and dry is not diaphoretic. He denies nausea and he is able to take a drink of water and swallow without difficulty PLAN: Patient had been asymptomatic until this event. Unsure if anything has changed. Patient is a non-smoker. Will give aspirin, draw labs morning labs adding a troponin and a D-dimer. Twelve-lead EKG was done which showed no ST depression or elevations. Will go ahead and place the patient on school bus monitor. Aspirin given. Will put in for another troponin in approximately 3 hours. 05:55 checked on patient again he was resting comfortably says he still feels a knot in the middle of the middle of his sternum. But is in no distress and not having any chest pain or shortness of breath at this time. Have ordered Tums.
[2024-09-08 05:28] LABS: Basophils % 0.3 % (0.1-2.0); Eosinophils # 0.1 K/mm3 (0.0-0.4); Hematocrit 36.2 % (42.0-52.0); Hemoglobin 13.1 g/dL (14.1-18.0); Lymphocytes # 1.2 K/mm3 (0.7-4.5); Lymphocytes % 11.1 % (10-50); Mean Corpuscular HGB Conc 36.2 g/dL (31.8-35.4); Mean Corpuscular Hemoglobin 30.6 pg (27.0-31.2); Mean Corpuscular Volume 84.6 fl (80-94); Mean Platelet Volume 9.5 fl (7.4-10.4); Monocytes # 0.9 K/mm3 (0.1-1.0); Monocytes % 8.2 % (1.7-9.3); Neutrophils # 8.3 K/mm3 (1.8-7.8); Platelet Count 250 K/mm3 (142-424); Red Blood Count 4.28 M/mm3 (4.60-6.20); Red Cell Distribution Width 12.1 % (11.5-17.5); White Blood Count 10.6 K/mm3 (4.8-10.8)
[2024-09-08 05:32] LABS: Potassium 3.4 mmoL/L (3.5-5.1)
[2024-09-08 05:33] LABS: Alanine Aminotransferase 16 U/L (12-78); Albumin Level 3.5 g/dl (3.5-5.0); Albumin/Globulin Ratio 1.5 (1.1-1.8); Alkaline Phosphatase 60 U/L (38-126); Anion Gap 12.4 mEq/L (5-15); Aspartate Amino Transferase 17 U/L (17-59); Blood Urea Nitrogen 16 mg/dl (9-20); Calcium 8.8 mg/dl (8.4-10.2); Carbon Dioxide 20 mmol/L (22.0-30.0); Chloride 107 mmol/L (98-107); Creatinine Clearance Estimated 166 mL/min (50-200); Estimated Glomerular Filt Rate 105 ml/min (>60); GFR (African American) 127 ML/MIN (>60); Globulin 2.4 g/dL (1.3-3.2); Glucose 83 mg/dl (74-100); Sodium 136 mmol/L (136-145); Total Protein,Serum 5.9 g/dl (6.3-8.2)
[2024-09-08] MEDS: ASPIRIN 81MG CHEWABLE TABLET 81 MG PO (05:34)
[2024-09-08 05:38] LABS: D-Dimer 0.98 ug/mL (0.0-0.5)
[2024-09-08 05:46] LABS: Troponin I < 0.01 ng/ml (0.00-0.034)
--- NOTE | 2024-09-08 07:34 | P.PN_ITS ---
Subjective *Date: 09/08/24 *Time: 12:08 Interval history: Had an episode of pain overnight that radiated up into his chest. EKG obtained that was normal. Pain better this morning. Denies nausea or vomiting. Improvement on exam. Afebrile. White count down. Medical Exam Vital signs and Labs for Last 24 Hours: Vital Signs Temp Pulse Resp BP Pulse Ox O2 Del Method 09/08/24 04:00 98.8 F 95 H 18 133/83 97 09/08/24 00:00 97.9 F 96 H 18 124/66 96 Room Air 09/07/24 23:00 Room Air 09/07/24 21:00 Room Air 09/07/24 20:00 Room Air 09/07/24 19:49 99.4 F 105 H 16 133/77 97 Room Air 09/07/24 17:51 Room Air 09/07/24 16:08 Room Air 09/07/24 16:00 98.0 F 106 H 18 139/86 97 Room Air 09/07/24 14:04 Room Air 09/07/24 12:00 98.4 F 95 H 17 134/85 99 Room Air 09/07/24 11:55 Room Air 09/07/24 08:39 Room Air 09/07/24 08:00 Room Air 09/07/24 08:00 99.6 F 108 H 16 138/84 95 Room Air Intake and Output 09/07/24 09/07/24 09/08/24 15:59 23:59 07:59 Intake Total 50 / 950 750 / 950 Output Total 0 / 0 Balance 50 / 950 750 / 950 Intake: Intake, Total IV Amount 50 / 950 750 / 950 0.9 % Sodium Chloride 1000ML 1, 750 / 900 000 ml @ 75 mls/hr IV .[id number] [facility] Rx#:[id number] Piperacillin/Tazo 3.375 gm In 0 50 / 50 .9 % Sodium Chloride 50 ml @ 100 mls/hr IV Q6H [facility] Rx#: [id number] Output: Output, Urine Amount 0 / 0 Other: Number of Unmeasured Voids 1 Number of Bowel Movements 1 Weight 100.045 kg Patient Weight 09/08/24 23:59 Weight 100.045 kg Laboratory Results - last 24 hr 09/07/24 07:05: WBC 14.3 H D, RBC 4.46 L, Hgb 13.8 L D, Hct 38.3 L, MCV 85.9, MCH 30.9, MCHC 36.0 H, RDW 12.3, Plt Count 269 D, MPV 10.0, Neut % (Auto) 85.6 H, Lymph % (Auto) 6.9 L, [place] % (Auto) 6.9, Eos % (Auto) 0.1, Baso % (Auto) 0.1, Neut # (Auto) 12.2 H, Lymph # (Auto) 1.0, [place] # (Auto) 1.0, Eos # (Auto) 0.0, Baso # (Auto) 0.0, Sodium 135 L, Potassium 3.5, Chloride 106, Carbon Dioxide 25, Anion Gap 7.5, BUN 19, Creatinine 0.80, Estimated Creat Clear 166, Estimated GFR 105, Est GFR ( Amer) 127, Glucose 103 H, Lactate 0.7, Calcium 8.3 L, Magnesium 1.7, Total Bilirubin 1.2, AST 15 L D, ALT 18 D, Alkaline Phosphatase 60, Total Protein 6.0 L, Albumin 3.6 D, Globulin 2.4, Albumin/Globulin Ratio 1.5 09/08/24 05:12: WBC 10.6 D, RBC 4.28 L, Hgb 13.1 L, Hct 36.2 L, MCV 84.6, MCH 30.6, MCHC 36.2 H, RDW 12.1, Plt Count 250, MPV 9.5, Neut % (Auto) 79.0, Lymph % (Auto) 11.1, [place] % (Auto) 8.2, Eos % (Auto) 1.0, Baso % (Auto) 0.3, Neut # (Auto) 8.3 H, Lymph # (Auto) 1.2, [place] # (Auto) 0.9, Eos # (Auto) 0.1, Baso # (Auto) 0.0, D-Dimer 0.98 H, Troponin I < 0.01 09/08/24 : Sodium 136, Potassium 3.4 L, Chloride 107, Carbon Dioxide 20 L, Anion Gap 12.4, BUN 16, Creatinine 0.80, Estimated Creat Clear 166, Estimated GFR 105, Est GFR ( Amer) 127, Glucose 83, Calcium 8.8, Magnesium 2.0 D, Total Bilirubin 1.0, AST 17, ALT 16, Alkaline Phosphatase 60, Total Protein 5.9 L, Albumin 3.5, Globulin 2.4, Albumin/Globulin Ratio 1.5 I & O for Labs for Last 24 Hours: Intake & Output 09/05/24 09/06/24 09/07/24 09/08/24 23:59 23:59 23:59 23:59 Intake Total 950 / 950 Output Total 0 / 0 0 / 0 Balance 0 / 150 950 / 950 Weight 99.79 kg 99.79 kg 100.045 kg Microbiology Reports for the Last 24 Hours: Microbiology 09/06/24 19:38 Blood Blood Culture - Preliminary NO GROWTH AFTER 24 HOURS 09/06/24 19:22 Blood Blood Culture - Preliminary NO GROWTH AFTER 24 HOURS Constitutional: Present no acute distress, average body habitus and cooperative Head: Present atraumatic and normocephalic ENT: Present normal exam Neck: Present normal inspection Respiratory: Present normal respiratory effort; Absent respiratory distress, rhonchi, stridor or wheezes Cardiac: Present Reg Rate and Rhythm GI: Present soft, tenderness (Interval improvement. No guarding or rebound today.) and normal bowel sounds; Absent distention, guarding, rebound or rigidity Extremities: Present normal inspection and full ROM Skin: Present intact; Absent erythema Neuro: Present Grossly Intact, alert, awake, oriented x 3 and moves all extremities Assessment and Plan *Assessment and plan (1) Acute diverticulitis: Start date: 09/05/24 Start time: 08:00 Status: Acute Category: Medical Code(s): K57.92 - Diverticulitis of intestine, part unspecified, without perforation or abscess without bleeding (2) Sepsis without septic shock: Status: Acute Category: Medical Code(s): A41.9 - Sepsis, unspecified organism (3) Abdominal pain: Status: Acute Qualifiers: Abdominal location: lower abdomen, unspecified Qualified Code(s): R10.30 - Lower abdominal pain, unspecified Category: Medical Code(s): R10.9 - Unspecified abdominal pain Plan 44 male who presented with abdominal pain. Found to have severe diverticulitis with concern for peritoneal signs. Discussed case with ER physician, request admission. I decided to admit for medical management including antibiotics and surgery consult. Patient NPO. Continues to require inpatient management. Problems addressed as follows: Diverticulitis Peritonitis, resolving -Continue Zosyn 3.375 g every 6 hours IV. Seeing improvement in white count. Down from 22 on admission to 10.6 today. Hemoglobin 13. Kidney function normal with BUN 16, creatinine 0.8. - Remains n.p.o. Continue IV fluids with normal saline at 75 cc an hour. -Discontinue IV Dilaudid. Continue Toradol 15 mg IV every 6 hours for moderate to severe pain. Transition to oral opiates with hydrocodone 5/325 every 4 hours as needed for severe pain. Monitor for toxicity -Discussed case with surgery, will continue to monitor with serial exams and conservative management. No plan for colostomy today. - Repeat CBC, CMP, magnesium ordered for the morning. Full code N.p.o.
[2024-09-08] MEDS: KETOROLAC 30MG/ML VIAL 15 MG IV (08:19)
[2024-09-08] MEDS: FAMOTIDINE 20MG/2ML VIAL 20 MG IV ×2 (08:20→21:03)
[2024-09-08 08:24] LABS: Troponin I < 0.01 ng/ml (0.00-0.034)
[2024-09-08] MEDS: 0.9 % SODIUM CHLORIDE 1000ML 1,000 ML 75 ML IV (12:07)
--- NOTE | 2024-09-08 14:22 | P.PN_ITS ---
Subjective Narrative: Continues to improve. He reports his abdominal pain is much better today, and has not required any IV pain medicine. He would like something to drink. He has passed flatus and had a small liquid bowel movement. Exam Data for Last 24 hours Vital signs and Labs for Last 24 Hours: Temp Pulse Resp BP Pulse Ox O2 Del Method 98.0 F 89 17 139/88 100 Room Air 09/08/24 12:00 09/08/24 12:00 09/08/24 12:00 09/08/24 12:00 09/08/24 12:00 09/08/24 12:01 Laboratory Results - last 24 hr 09/08/24 05:12: WBC 10.6 D, RBC 4.28 L, Hgb 13.1 L, Hct 36.2 L, MCV 84.6, MCH 30.6, MCHC 36.2 H, RDW 12.1, Plt Count 250, MPV 9.5, Neut % (Auto) 79.0, Lymph % (Auto) 11.1, [place] % (Auto) 8.2, Eos % (Auto) 1.0, Baso % (Auto) 0.3, Neut # (Auto) 8.3 H, Lymph # (Auto) 1.2, [place] # (Auto) 0.9, Eos # (Auto) 0.1, Baso # (Auto) 0.0, D-Dimer 0.98 H, Troponin I < 0.01 09/08/24 07:55: Troponin I < 0.01 09/08/24 : Sodium 136, Potassium 3.4 L, Chloride 107, Carbon Dioxide 20 L, Anion Gap 12.4, BUN 16, Creatinine 0.80, Estimated Creat Clear 166, Estimated GFR 105, Est GFR ( Amer) 127, Glucose 83, Calcium 8.8, Magnesium 2.0 D, Total Bilirubin 1.0, AST 17, ALT 16, Alkaline Phosphatase 60, Total Protein 5.9 L, Albumin 3.5, Globulin 2.4, Albumin/Globulin Ratio 1.5 I & O for Last 24 hours: Intake & Output 09/05/24 09/06/24 09/07/24 09/08/24 23:59 23:59 23:59 23:59 Intake Total 950 / 1000 100 / 100 Output Total 0 / 0 0 / 0 0 / 0 Balance 0 / 150 950 / 1000 100 / 100 Weight 220 lb 219 lb 15.988 oz 220 lb 9 oz Microbiology Reports for the Last 24 Hours: Microbiology 09/06/24 19:38 Blood Blood Culture - Preliminary NO GROWTH AFTER 24 HOURS 09/06/24 19:22 Blood Blood Culture - Preliminary NO GROWTH AFTER 24 HOURS Constitutional Constitutional: no acute distress *Routine Abdominal Exam Abdominal: Present soft and normoactive bowel sounds; Absent tenderness, distended, rebound or guarding Progress Note: A&P Assessment and plan (1) Acute diverticulitis: Problem details: White blood cell count downtrending towards normal. His pain has much improved today. Continue IV Zosyn. Will trial on clear liquid diet. Replace hypokalemia per primary service. Anticipate home in the next few days on oral antibiotic regimen. Status: Acute (2) Sepsis without septic shock: Status: Acute (3) Abdominal pain: Status: Acute
[2024-09-08] MEDS: SODIUM CHLORIDE 0.9% 10ML VIAL 8 ML IV (21:03)
[2024-09-09] VITALS: BP 155/89; PULSE 90; PULSE 94; RESP 16; TEMP 37.2; O2SAT 97
[2024-09-09 04:00] VITALS: BP 121/69; PULSE 80; PULSE 83; RESP 16; TEMP 37; O2SAT 98; BMI 30.9
[2024-09-09] MEDS: PIPERACILLIN/TAZO 3.375 GM in 0.9 % SODIUM CHLORIDE 50 ML IV (05:12)
--- NOTE | 2024-09-09 06:13 | PC.NURSE ---
Pt. is alert and orientated x 4. Pt. is on room air. Pt. has had a good night. Pt. denies any pain to abdomen. Also denies CP. Pt. tolerating liquid diet. Pt. has been up to bathroom independently.. Pt. slept. well this shift. VSS Personal items and call dolan in reach,.
[2024-09-09 06:31] LABS: Basophils % 0.4 % (0.1-2.0); Eosinophils # 0.3 K/mm3 (0.0-0.4); Eosinophils % 3.3 % (0.1-12.0); Hematocrit 38.1 % (42.0-52.0); Lymphocytes # 1.4 K/mm3 (0.7-4.5); Lymphocytes % 17.7 % (10-50); Mean Corpuscular HGB Conc 36.7 g/dL (31.8-35.4); Mean Corpuscular Hemoglobin 30.6 pg (27.0-31.2); Mean Corpuscular Volume 83.2 fl (80-94); Mean Platelet Volume 9.3 fl (7.4-10.4); Monocytes # 0.8 K/mm3 (0.1-1.0); Monocytes % 9.6 % (1.7-9.3); Neutrophils # 5.5 K/mm3 (1.8-7.8); Neutrophils % 68.6 % (37.0-80.0); Platelet Count 288 K/mm3 (142-424); Red Blood Count 4.58 M/mm3 (4.60-6.20); Red Cell Distribution Width 11.9 % (11.5-17.5)
[2024-09-09 06:44] LABS: Alanine Aminotransferase 18 U/L (12-78); Albumin Level 3.8 g/dl (3.5-5.0); Albumin/Globulin Ratio 1.5 (1.1-1.8); Alkaline Phosphatase 61 U/L (38-126); Anion Gap 10.3 mEq/L (5-15); Aspartate Amino Transferase 20 U/L (17-59); Bilirubin,Total 0.8 mg/dl (0.2-1.3); Blood Urea Nitrogen 13 mg/dl (9-20); Calcium 9.2 mg/dl (8.4-10.2); Carbon Dioxide 26 mmol/L (22.0-30.0); Chloride 108 mmol/L (98-107); Creatinine Clearance Estimated 167 mL/min (50-200); Estimated Glomerular Filt Rate 105 ml/min (>60); GFR (African American) 127 ML/MIN (>60); Globulin 2.6 g/dL (1.3-3.2); Glucose 102 mg/dl (74-100); Potassium 3.3 mmoL/L (3.5-5.1); Sodium 141 mmol/L (136-145); Total Protein,Serum 6.4 g/dl (6.3-8.2)
[2024-09-09 07:11] LABS: Magnesium 1.9 mg/dl (1.6-2.3)
--- NOTE | 2024-09-09 07:30 | EXP.DC.SUM ---
General Admission date:: 09/06/24 Discharge date: 09/09/24 HPI HPI HPI: Isidro Yañez is a 44 year old M with hx of ADHD and remote episode of diverticulitis who presents with 36 hours of worsening suprapubic pain. His pain is worst with attempt to pass flatus or defecate, and has also caused some incomplete voiding. He reports this pain is similar to his diverituclitis episode 11 years ago, which was managed nonsurgically, except not as severe. His initial VS were notable for HR 140s, and rebound tenderness on physical exam. Significant leukocytosis, no acidosis or RERE. Hgb 17.5, likely hemoconcentrated. A CT scan showed diverticulitis without perforation or abscess, images and report reviewed personally. Pain is a little better after dilaudid. Last month, he had a steroid pack for URI. Hospital Course Hospital Course Hospital Course: 44 male who presented with abdominal pain. Found to have severe diverticulitis with concern for peritoneal signs. Discussed case with ER physician, request admission. I decided to admit for medical management including antibiotics and surgery consult. Patient symptoms are improved. Serial exams showing resolution of pain. White count normalized. No plan for surgical intervention at this time. Stable to discharge home to complete antibiotics and follow-up as an outpatient. Problems addressed as follows: Diverticulitis Peritonitis, resolving -Patient presented with abdominal pain and image findings concerning for diverticulitis with questionable small perforation. Surgery was consulted. Initiated on broad-spectrum antibiotics with Zosyn 3.375 g every 6 hours. Showed gradual improvement with significant improvement in pain. Able to advance diet to full liquids without difficulty. Having bowel movements. No fever. White count improved from 22 on admission to 8 on day of discharge. Hemoglobin 14. Kidney function normal with BUN 13, creatinine 0.8. Will transition to Augmentin to complete 9 days total of antibiotics. Plan for follow-up with surgery in the next week to reevaluate resolution of symptoms and discuss repeat imaging. This is a recurrent case of diverticulitis for this patient. He has episodes about once a year. Needs further discussion as an outpatient about possible colectomy if conditions recur. Total time spent on discharge 32 minutes in counseling, documentation, chart review, and direct care with patient. Exam Data for Last 24 hours Vital signs and Labs for Last 24 Hours: Temp Pulse Resp BP Pulse Ox O2 Del Method 98.6 F 83 16 121/69 98 Room Air 09/09/24 04:00 09/09/24 04:00 09/09/24 04:00 09/09/24 04:00 09/09/24 04:00 09/09/24 07:00 Laboratory Results - last 24 hr 09/08/24 07:55: Troponin I < 0.01 09/09/24 06:09: WBC 8.0, RBC 4.58 L, Hgb 14.0 L, Hct 38.1 L, MCV 83.2, MCH 30.6, MCHC 36.7 H, RDW 11.9, Plt Count 288, MPV 9.3, Neut % (Auto) 68.6, Lymph % (Auto) 17.7, [place] % (Auto) 9.6 H, Eos % (Auto) 3.3, Baso % (Auto) 0.4, Neut # (Auto) 5.5, Lymph # (Auto) 1.4, [place] # (Auto) 0.8, Eos # (Auto) 0.3, Baso # (Auto) 0.0, Sodium 141, Potassium 3.3 L, Chloride 108 H, Carbon Dioxide 26, Anion Gap 10.3, BUN 13, Creatinine 0.80, Estimated Creat Clear 167, Estimated GFR 105, Est GFR ( Amer) 127, Glucose 102 H, Calcium 9.2, Magnesium 1.9, Total Bilirubin 0.8, AST 20, ALT 18, Alkaline Phosphatase 61, Total Protein 6.4, Albumin 3.8, Globulin 2.6, Albumin/Globulin Ratio 1.5 I & O for Last 24 hours: Intake & Output 09/06/24 09/07/24 09/08/24 09/09/24 23:59 23:59 23:59 23:59 Intake Total 950 / 1000 1080 / 1130 50 / 50 Output Total 0 / 0 0 / 0 0 / 0 0 / 0 Balance 0 / 150 950 / 1000 1080 / 1130 50 / 50 Weight 99.79 kg 99.79 kg 100.045 kg 100.04 kg Microbiology Reports for the Last 24 Hours: Microbiology 09/06/24 19:38 Blood Blood Culture - Preliminary NO GROWTH AFTER 48 HOURS 09/06/24 19:22 Blood Blood Culture - Preliminary NO GROWTH AFTER 48 HOURS Constitutional Constitutional: no acute distress, average body habitus and cooperative *Routine HEENT Exam Head: Present normocephalic Eye: Present EOMI and PERRL ENT: Present mucous membranes moist *Routine Neck Exam Neck: Present supple; Absent lymphadenopathy *Routine Respiratory Exam Respiratory: Present CTA bilaterally, rhonchi and crackles *Routine Cardiovascular Exam Cardiovascular: Present RRR *Routine Abdominal Exam Abdominal: Present soft, normoactive bowel sounds and tenderness (minimal in RLQ); Absent distended, rebound or guarding *Routine Rectal Exam Patient deferred: visual exam *Routine Exam Patient deferred: penile exam *Routine Extremities Exam Extremities: Absent cyanosis, clubbing or edema *Routine Skin Exam Skin: Present warm; Absent rash *Routine Neurological Exam Neurological: Present alert, oriented X3 and moving all extremities; Absent altered mental status Results Data Completed and Pending Labs on day of discharge: Labs from last 24 hours 09/09/24 09/08/24 06:09 07:55 WBC 8.0 RBC 4.58 L Hgb 14.0 L Hct 38.1 L MCV 83.2 MCH 30.6 MCHC 36.7 H RDW 11.9 Plt Count 288 MPV 9.3 Neut % (Auto) 68.6 Lymph % (Auto) 17.7 [place] % (Auto) 9.6 H Eos % (Auto) 3.3 Baso % (Auto) 0.4 Neut # (Auto) 5.5 Lymph # (Auto) 1.4 [place] # (Auto) 0.8 Eos # (Auto) 0.3 Baso # (Auto) 0.0 Sodium 141 Potassium 3.3 L Chloride 108 H Carbon Dioxide 26 Anion Gap 10.3 BUN 13 Creatinine 0.80 Estimated Creat Clear 167 Estimated GFR 105 Est GFR ( Amer) 127 Glucose 102 H Calcium 9.2 Magnesium 1.9 Total Bilirubin 0.8 AST 20 ALT 18 Alkaline Phosphatase 61 Troponin I < 0.01 Total Protein 6.4 Albumin 3.8 Globulin 2.6 Albumin/Globulin Ratio 1.5 Preliminary micro results at discharge 09/06/24 19:38 Blood Culture - Preliminary Blood NO GROWTH AFTER 48 HOURS 09/06/24 19:22 Blood Culture - Preliminary Blood NO GROWTH AFTER 48 HOURS DS: Diagnosis Discharge Diagnosis (1) Acute diverticulitis: Status: Acute Code(s): K57.92 - Diverticulitis of intestine, part unspecified, without perforation or abscess without bleeding Problem details: White blood cell count downtrending towards normal. His pain has much improved today. Continue IV Zosyn. Will trial on clear liquid diet. Replace hypokalemia per primary service. Anticipate home in the next few days on oral antibiotic regimen. (2) Sepsis without septic shock: Status: Acute Code(s): A41.9 - Sepsis, unspecified organism (3) Abdominal pain: Status: Acute Code(s): R10.9 - Unspecified abdominal pain Qualifiers: Abdominal location: lower abdomen, unspecified Qualified Code(s): R10.30 - Lower abdominal pain, unspecified Meds Home Medications and Allergies Home Medications ?Medication ?Instructions ?Recorded ?Confirmed ?Type dextroamphetamine-amphetamine 20 20 mg PO BID #60 tabs 08/26/24 09/06/24 Rx mg tablet (Adderall) amoxicillin 875 mg-potassium 1 tab PO Q8H 5 days #15 tabs 09/09/24 Rx clavulanate 125 mg tablet New Prescriptions to Start Prescriptions: amoxicillin-pot clavulanate Rudolph Gifford Allergies Allergy/AdvReac Type Severity Reaction Status Date / Time No Known Allergies Allergy Verified 08/15/24 08:44 Discharge Plan Disposition Patient Disposition: Home, Self-Care Condition: Fair Discharge Order Discharge Orders: Discharge Order (Routine); Ordered 09/09/24 Ordered By: Rudolph Gifford Follow up Plan Follow up with: Juan Green MD [Staff Physician] - 09/19/24 10:00 am Brandyn Colón MD [Primary Care Provider] - 09/13/24 9:30 am Prescriptions/Medication Reconciliation: New amoxicillin-pot clavulanate 875-125 mg tablet 1 tab PO Q8H 5 Days Qty: 15 0RF Continued dextroamphetamine-amphetamine [Adderall] 20 mg tablet 20 mg PO BID Qty: 60 0RF Rx Instructions: administer doses at least 4-6 hours apart Discontinued levofloxacin 500 mg tablet 500 mg PO DAILY Problem Reconciliation Problems Reviewed?: Yes Patient Discharge Instructions ACTIVITY: Continue current activity DIET: continue same diet and advance to your usual diet Patient Instructions: DI for Diverticulitis Print Language: Tu[place] Providers Primary Care Provider: Brandyn Colón Admit Provider: Rudolph Gifford Attending Provider: Rudolph Gifford
[2024-09-09 08:00] VITALS: BP 135/74; PULSE 83; PULSE 87; RESP 18; TEMP 36.7; O2SAT 96
[2024-09-09] MEDS: FAMOTIDINE 20MG/2ML VIAL 20 MG IV (09:17)
[2024-09-09 15:03] LABS: Myoglobin 34 ng/mL (28-72)
--- NOTE | 2024-09-10 09:54 | SW/DCPLANNER ---
Spoke with patient on the phone. Patient stated that he is doing great. Patient stated that he is aware of his upcoming appointments. Patient stated that his new medicine was brought to his bed from clinic pharmacy. Patient stated that his care here was awesome and noone could get that kind of treatment any where else. Patient stated that he could not thank all the staff and the ones who cared for him enough. Patient stated that he has no concerns or questions at this time. Melita Darling
== END 2024-09-09 10:09 | disposition home or self-care (01) | DRG 391 ==
LOC: ER 21:25 → 2ND 09-07 05:42
PROVIDERS: Nurse Practitioner Family; Physician Assistant; Admitting Provider Internal Medicine Adolescent Medicine; Emergency Provider Emergency Medicine; PCP Internal Medicine Adolescent Medicine; Visit Provider Internal Medicine Adolescent Medicine
DX: K57.92 Diverticulitis of intestine, part unspecified, without perforation or abscess without bleeding (principal); A41.9 Sepsis, unspecified organism; K65.8 Other peritonitis; R10.30 Lower abdominal pain, unspecified; F90.9 Attention-deficit hyperactivity disorder, unspecified type; Z79.899 Other long term (current) drug therapy; Z87.19 Personal history of other diseases of the digestive system
CPT/HCPCS: 36415; 74177; 80053; 81001; 83605; 83735; 83874; 84145; 84484; 85007; 85025; 85378; 86140; 86803; 87040; 87045; 87086; 87389; 93005; 99291; J0131; J1171; J1885; J2405; J2543; J7030; J7120; Q9967; S0028

== ENCOUNTER 2024-10-03 07:43 | Outpatient (CLI) | payer BC, SELFPAY ==
--- NOTE | 2024-10-03 07:45 | CT_ITS ---
FINAL REPORT TECHNIQUE: After the administration of oral and intravenous contrast, axial images were obtained through the abdomen and pelvis by computed tomography. The study was performed with techniques to keep radiation dose as low as reasonably achievable, (ALARA). Individual dose reduction techniques using automated exposure control or adjustment of mA and/or kV according to the patient's size were employed. CLINICAL HISTORY: Diverticular disease, follow-up COMPARISON: 09/06/2024 FINDINGS: Abdomen: The lung bases are clear. There is mild fatty infiltration of the liver. The gallbladder is contracted. The spleen, pancreas, adrenals and kidneys appear unremarkable. The aorta is normal in caliber. There is no free fluid or adenopathy. Pelvis: The appendix is unremarkable. Previously noted extensive inflammation of the mid sigmoid colon has markedly improved. There is minimal residual mucosal thickening with adjacent stranding. This is best seen on images 104 and 105 of series 2. The urinary bladder is unremarkable. There is no free fluid or adenopathy. IMPRESSION: Marked improvement of inflammation of the mid sigmoid colon with minimal residual inflammatory reaction. Reviewed, Interpreted and Dictated by Mikal Donahue MD Transcribed by Sherry Metz Authenticated and [facility]
[2024-10-03] MEDS: IOPAMIDOL-370 (76%);100ML BOTTLE 75 ML IV (08:13)
[2024-10-03] MEDS: BARIUM SULFATE(READI-CAT2);450ML BOTTLE 450 ML PO (08:13)
[2024-10-03] MEDS: SODIUM CHLORIDE 0.9% 10ML SYR (RAD ONLY) 10 ML IV (08:13)
== END 2024-10-03 23:59 | disposition home or self-care (01) ==
LOC: RAD 07:43
PROVIDERS: PCP Internal Medicine Adolescent Medicine; Visit Provider Internal Medicine Adolescent Medicine
DX: K57.90 Diverticulosis of intestine, part unspecified, without perforation or abscess without bleeding (principal)
CPT/HCPCS: 74177; Q9967